=== PATIENT | female | born 1990 | race American Indian/Alaskan Native ===

== ENCOUNTER 2020-09-23 12:00 | Inpatient (IN) | payer BC ==
[2020-09-23] MEDS ORDERED: ONDANSETRON 4 MG/2 ML INJ IV ONE (13:51)
[2020-09-23] MEDS ORDERED: MORPHINE 4 MG/1 ML INJ IV ONE (13:51)
[2020-09-23] MEDS ORDERED: SODIUM CHLORIDE 0.9% 1000 ML 1,000 ML IV ONE (13:51)
--- NOTE | 2020-09-23 13:53 | Event Note ---
ED Screening Note ED Screening Note: upper abd pain that initially began two weeks ago and states it worsened this morning she states now the pain is worse she has associated n/v she denies diarrhea, hematochezia, melena, hematemesis, pus in the stool, fever, urinary symptoms, abnormal vaginal discharge She denies any past medical history Allergy to amoxicillin Last menstrual cycle ended last month On exam patient has diffuse abdominal tenderness palpation, worse in the upper abdomen, patient has voluntary guarding, normal bowel sounds Dry mucous membranes This initial assessment/diagnostic orders/clinical plan/treatment(s) is/are subject to change based on patients health status, clinical progression and re- assessment by fellow clinical providers in the ED. Further treatment and workup at subsequent clinical providers discretion. Patient/guardian urged not to elope from the ED as their condition may be serious if not clinically assessed and managed. Initial orders include: Labs, CT, urine, meds
[2020-09-23 14:45] LABS: Basophils # (Auto) 0.1 K/mm3 (0.0-0.1); Eosinophils % (Auto) 0.2 % (0.0-4.3); Hematocrit 34.8 % (30.3-42.9); Hemoglobin 11.7 gm/dl (10.1-14.3); Lymphocytes # (Auto) 1.6 K/mm3 (1.2-5.4); Lymphocytes % (Auto) 12.4 % (13.4-35.0); Mean Corpuscular HGB Conc 34 % (30-34); Mean Corpuscular Volume 88 fl (79-97); Monocytes # (Auto) 1.5 K/mm3 (0.0-0.8); Monocytes % (Auto) 11.5 % (0.0-7.3); Platelet Count 546 K/mm3 (140-440); Red Blood Count 3.96 M/mm3 (3.65-5.03); Red Cell Distribution Width 15.5 % (13.2-15.2)
[2020-09-23 14:50] LABS: Alanine Aminotransferase 15 units/L (7-56); Albumin 4.2 g/dL (3.9-5); BUN/Creatinine Ratio 12; Blood Urea Nitrogen 13 mg/dL (7-17); Hemolysis Index 3
--- NOTE | 2020-09-23 15:59 | Cat Scan Report ---
CT ABDOMEN AND PELVIS WITH CONTRAST INDICATION / CLINICAL INFORMATION: Abdominal pain. TECHNIQUE: Axial CT images were obtained through the abdomen and pelvis after IV contrast. All CT sc ans at this location are performed using CT dose reduction for ALARA by means of automated exposure c ontrol. COMPARISON: None available. FINDINGS: LOWER CHEST: No significant abnormality LIVER: No significant abnormality GALLBLADDER/BILIARY TREE: No significant abnormality. No gallbladder dilatation. PANCREAS: No significant abnormality SPLEEN: No significant abnormality ADRENALS: No significant abnormality KIDNEYS / URETER: No significant abnormality URINARY BLADDER: No significant abnormality REPRODUCTIVE ORGANS: No significant abnormality STOMACH / SMALL BOWEL: Extensive mural thickening and inflammatory stranding with mucosal disruption seen on series 601 image 32 with intramural fluid, consistent with ulceration. There is moderate scat tered intraperitoneal free air, consistent with perforation. No bowel obstruction. COLON: The colon is unremarkable. The appendix is normal in caliber. LYMPH NODES: Multiple enlarged reactive lymph nodes within the upper abdomen. VASCULATURE: No significant abnormality. OTHER: No free air, free fluid, or focal fluid collection is identified. SKELETAL SYSTEM: No acute osseous findings. IMPRESSION: 1. Peptic ulcer disease at the gastroduodenal junction with perforation. 2. Enlarged presumably reactive lymph nodes in the upper abdomen. Findings were discussed with ALEE Awan by phone on 09/23/2020 at 2:55 PM Signer Name: Suleman Hayward MD Signed: 09/23/2020 3:55 PM Workstation Name: [email or web address]
--- NOTE | 2020-09-23 16:50 | Emergency Department Report ---
ED General Adult HPI - General Chief complaint: Abdominal Pain Stated complaint: ABD PAIN PUI?: No Time Seen by Provider: 09/23/20 13:47 Source: patient, RN notes reviewed Mode of arrival: Ambulatory Limitations: No Limitations - History of Present Illness Initial comments: The patient was evaluated in the emergency department for symptoms described in the history of present illness. He/she was evaluated in the context of the global COVID-19 pandemic, which necessitated consideration that the patient might be at risk for infection with the virus that causes COVID-19. Institutional protocols and algorithms that pertain to the evaluation of patients at risk for COVID-19 are in a state of rapid change based on information released by regulatory bodies including the CDC and federal and state organizations. These policies and algorithms were followed during the patient's care in the emergency department. Please note that these policies, procedures and recommendations changed on a rapid basis. This is a pleasant 29-year-old female. She is not known to myself previously. She denies chronic medical issues from prior surgical history. She presents to the ER with a complaint of 1 week diffuse upper abdominal pain, nausea, anorexia. Denies fever, loss of taste and smell. Abdominal pain is sharp and throbbing, increases with palpation, decreases with rest. Denies Covid symptomatology. Patient occasionally takes Goody's, and NSAIDs. Occasionally smokes, and occasionally consumes tobacco and alcohol. Has no known history of peptic ulcer disease that she is aware of. -: Gradual, days(s) Location: abdomen Radiation: non-radiation Severity scale (0 -10): 10 Quality: aching Consistency: constant Improves with: rest Worsens with: movement - Related Data Allergies Allergy/AdvReac Type Severity Reaction Status Date / Time amoxicillin Allergy Hives Verified 09/23/20 12:48 ED Review of Systems ROS: Stated complaint: ABD PAIN Other details as noted in HPI Constitutional: malaise. denies: fever Eyes: denies: eye discharge ENT: denies: other Respiratory: denies: cough Cardiovascular: denies: chest pain Gastrointestinal: abdominal pain, nausea Genitourinary: as per HPI. denies: dysuria Musculoskeletal: denies: myalgia Neurological: weakness Hematological/Lymphatic: denies: easy bleeding ED Past Medical Hx - Past Medical History Previous Medical History?: No - Surgical History Past Surgical History?: No ED Physical Exam - General Limitations: No Limitations General appearance: alert, anxious - Head Head exam: Present: atraumatic, normocephalic - Eye Eye exam: Present: normal appearance, EOMI. Absent: nystagmus - ENT ENT exam: Present: normal exam, normal orophraynx, mucous membranes moist, normal external ear exam - Neck Neck exam: Present: normal inspection, full ROM. Absent: tenderness, meningis mus - Respiratory Respiratory exam: Present: normal lung sounds bilaterally. Absent: respiratory distress, wheezes, rales, rhonchi, stridor, decreased breath sounds - Cardiovascular Cardiovascular Exam: Present: normal rhythm, tachycardia, normal heart sounds. Absent: systolic murmur, diastolic murmur, rubs, gallop - GI/Abdominal GI/Abdominal exam: Present: soft, tenderness, guarding, rebound, pulsatile mass. Absent: distended - Extremities Exam Extremities exam: Present: normal inspection, full ROM, other (2+ pulses noted in the bilateral upper and lower extremities. There is no palpable cord. negative Homans sign. Muscular compartments are soft. The pelvis is stable.). Absent: pedal edema, calf tenderness - Back Exam Back exam: Present: normal inspection. Absent: tenderness, CVA tenderness (R), CVA tenderness (L), muscle spasm, paraspinal tenderness, vertebral tenderness - Neurological Exam Neurological exam: Present: alert, other (2+ pulses noted in the bilateral upper and lower extremities. There is no palpable cord. negative Homans sign. Muscular compartments are soft. The pelvis is stable.) - Psychiatric Psychiatric exam: Present: anxious - Skin Skin exam: Present: warm, dry, intact, normal color. Absent: rash ED Course Vital Signs 09/23/20 12:51 Temperature 98.4 F Pulse Rate 112 H Respiratory 20 Rate Blood Pressure 114/64 [Right] O2 Sat by Pulse 100 Oximetry - Reevaluation(s) Reevaluation #1: 09/23/20 17:06 Differential diagnosis, including but not limited to: Pancreatitis, peptic ulcer disease, perforated viscus Assessment and plan: 29-year-old female with abdominal pain tenderness, rebound and guarding, leukocytosis, without fever, not , CT scan abdomen pelvis suggest perforated viscus. I have contacted general surgeon on-call, Dr. Walker, have discussed the patient's history, physical, pertinent laboratory studies and imaging studies, and have requested emergent general surgical consultation. He is in route, and states he will call the OR team in. Hospital physician, Dr. Sangeeta Garcia to admit to IMS Patient will be given fluids, pain medication antibiotics and Protonix. Explained significance of findings to patient, including the articulated plan of care. Patient verbalized understanding, and is amenable to this plan of care. Medical decision makin-year-old female with peritonitis secondary to pe rforated viscus requires emergent general surgical evaluation, and operative intervention. ED Medical Decision Making - Lab Data Result diagrams: 09/23/20 14:21 09/23/20 14:21 Vital Signs 09/23/20 12:51 Temperature 98.4 F Pulse Rate 112 H Respiratory 20 Rate Blood Pressure 114/64 [Right] O2 Sat by Pulse 100 Oximetry Lab Results 09/23/20 09/23/20 09/23/20 Range/Units 14:21 14:21 14:21 WBC 12.8 H (4.5-11.0) K/mm3 RBC 3.96 (3.65-5.03) M/mm3 Hgb 11.7 (10.1-14.3) gm/dl Hct 34.8 (30.3-42.9) % MCV 88 (79-97) fl MCH 30 (28-32) pg MCHC 34 (30-34) % RDW 15.5 H (13.2-15.2) % Plt Count 546 H (140-440) K/mm3 Lymph % (Auto) 12.4 L (13.4-35.0) % Wilcox % (Auto) 11.5 H (0.0-7.3) % Eos % (Auto) 0.2 (0.0-4.3) % Baso % (Auto) 1.0 (0.0-1.8) % Lymph # (Auto) 1.6 (1.2-5.4) K/mm3 Wilcox # (Auto) 1.5 H (0.0-0.8) K/mm3 Eos # (Auto) 0.0 (0.0-0.4) K/mm3 Baso # (Auto) 0.1 (0.0-0.1) K/mm3 Seg Neutrophils % 74.9 H (40.0-70.0) % Seg Neutrophils # 9.6 H (1.8-7.7) K/mm3 Sodium 140 (137-145) mmol/L Potassium 3.2 L (3.6-5.0) mmol/L Chloride 102.6 (98-107) mmol/L Carbon Dioxide 22 (22-30) mmol/L Anion Gap 19 mmol/L BUN 13 (7-17) mg/dL Creatinine 1.1 (0.6-1.2) mg/dL Estimated GFR 59 ml/min BUN/Creatinine Ratio 12 % Glucose 132 H (65-100) mg/dL Calcium 9.0 (8.4-10.2) mg/dL Total Bilirubin < 0.20 (0.1-1.2) mg/dL AST 13 (5-40) units/L ALT 15 (7-56) units/L Alkaline Phosphatase 138 H (35-129) units/L Total Protein 7.4 (6.3-8.2) g/dL Albumin 4.2 (3.9-5) g/dL Albumin/Globulin Ratio 1.3 % Lipase 35 (13-60) units/L HCG, Qual Negative (Negative) - Radiology Data Radiology results: pending, report reviewed, [place] [id number] Cat Scan Report Signed Patient: JORGE DEL TORO MR#: [id number] 2 : 1990 Acct:[id number] Age/Sex: 29 / F ADM Date: 09/23/20 Loc: ED Attending Dr: Ordering Physician: BRINDA MONTERO Date of Service: 09/23/20 Procedure(s): CT abdomen pelvis w con Accession Number(s): [id number] cc: BRINDA MONTERO CT ABDOMEN AND PELVIS WITH CONTRAST INDICATION / CLINICAL INFORMATION: Abdominal pain. TECHNIQUE: Axial CT images were obtained through the abdomen and pelvis after IV contrast. All CT scans at this location are performed using CT dose reduction for ALARA by means of automated exposure control. COMPARISON: None available. FINDINGS: LOWER CHEST: No significant abnormality LIVER: No significant abnormality GALLBLADDER/BILIARY TREE: No significant abnormality. No gallbladder dilatation. PANCREAS: No significant abnormality SPLEEN: No significant abnormality ADRENALS: No significant abnormality KIDNEYS / URETER: No significant abnormality URINARY BLADDER: No significant abnormality REPRODUCTIVE ORGANS: No significant abnormality STOMACH / SMALL BOWEL: Extensive mural thickening and inflammatory stranding with mucosal disruption seen on series 601 image 32 with intramural fluid, consistent with ulceration. There is moderate scattered intraperitoneal free air, consistent with perforation. No bowel obstruction. COLON: The colon is unremarkable. The appendix is normal in caliber. LYMPH NODES: Multiple enlarged reactive lymph nodes within the upper abdomen. VASCULATURE: No significant abnormality. OTHER: No free air, free fluid, or focal fluid collection is identified. SKELETAL SYSTEM: No acute osseous findings. IMPRESSION: 1. Peptic ulcer disease at the gastroduodenal junction with perforation. 2. Enlarged presumably reactive lymph nodes in the upper abdomen. Findings were discussed with ALEE Awan by phone on 09/23/2020 at 2:55 PM Signer Name: Tamika Hayward MD Signed: 09/23/2020 3:55 PM Workstation Name: [id number] Transcribed By: SUNITA Dictated By: TAMIKA HAYWARD MD Electronically Authenticated By: TAMIKA HAYWARD MD Signed Date/Time: 09/23/20 1555 DD/ 1542 Critical care attestation.: If time is entered above; I have spent that time in minutes in the direct care of this critically ill patient, excluding procedure time. ED Disposition Clinical Impression: Perforated abdominal viscus, Peritonitis, Hypokalemia Disposition: OP ADMIT IP TO THIS HOSP Is pt being admited?: Yes Does the pt Need Aspirin: No Condition: Serious Instructions: Abdominal Pain (ED) Referrals: PRIMARY CAREMD [Primary Care Provider] - 3-5 Days
[2020-09-23] MEDS ORDERED: metroNIDAZOLE/NS 500 MG/100 ML 500 MG/100 ML BAG IV ONE (16:51)
[2020-09-23] MEDS ORDERED: PANTOPRAZOLE 40 MG INJ IV ONE (16:52)
[2020-09-23] MEDS ORDERED: LACTATED RINGERS 2,000 ML IV ONE (16:52)
[2020-09-23] MEDS: POTASSIUM CHLORIDE 10 MEQ 10 MEQ/100 ML BAG IV SCH ×2 (17:18→18:46)
[2020-09-23] MEDS ORDERED: HYDROmorphone 1 MG/1 ML INJ IV ONE (17:36)
[2020-09-23] MEDS ORDERED: ONDANSETRON 4 MG/2 ML INJ IV PRN ×2 (18:28→18:56)
[2020-09-23] MEDS ORDERED: ACETAMINOPHEN 325 MG TAB PO PRN (18:28)
[2020-09-23] MEDS ORDERED: METOCLOPRAMIDE 10 MG/2 ML INJ IV PRN (18:28)
--- NOTE | 2020-09-23 18:28 | History and Physical Report ---
History of Present Illness Date of examination: 09/23/20 Date of admission: 09/23/20 17:00 Chief complaint: Abdominal pain for 2 weeks History of present illness: 29-year-old -[place]og[place] female with no significant past medical history comes in for abdominal pain of 2 weeks duration. Patient has been taking BC powders for muscle pains and while going to the gym. Patient takes BC powders twice a day for pain relief. Buys it from [employer]. Today the pain has been worse and about 10 on a scale of 1-10 associated with vomiting x3. Pain is sharp and intermittent. Patient is very uncomfortable because of the pain. Pain is exacerbated by eating and relieved by fasting. No fever or chills. No exposure to coronavirus. - Past Medical History Previous Medical History?: No - Surgical History Past Surgical History?: No -Social history no alcohol or smoking Family history HTN Review of Systems ROS: Constitutional no weight loss or weight gain no fever or chills HEENT no sore throat no post nasal drip no diplopia Neck no neck stiffness no lymph gland enlargement Chest and lungs no shortness of breath cough or wheezing CVS no chest pain no diaphoresis no palpitations GI severe abdominal pain and vomiting x3 pain is 10/10 Genitourinary system no dysuria no flank pain Musculoskeletal system no muscle pains no joint pains [employer] no syncope no seizures Skin no rash no itching Psychiatric no depression no homicidal or suicidal tendencies Hematologic no lymphedema or bruising Endocrine no polydipsia no polyuria no cold intolerance no heat intolerance Medications and Allergies Allergies Allergy/AdvReac Type Severity Reaction Status Date / Time amoxicillin Allergy Hives Verified 09/23/20 12:48 Penicillins AdvReac Hives Verified 09/23/20 17:44 Home Medications Medication Instructions Recorded Confirmed Last Taken Type No Known Home Medications [No 09/23/20 09/23/20 Unknown History Reported Home Medications] Active Meds: Active Medications Hydromorphone HCl (Hydromorphone 1 Mg/1 Ml Inj) 1 mg IV Q2H PRN PRN Reason: Pain , Severe (7-10) Potassium Chloride (Kcl 10meq/100ml) 10 meq in 100 mls @ 100 mls/hr IV Q1H JULIA Stop: 09/23/20 20:59 Last Admin: 09/23/20 17:18 Dose: 100 mls/hr Documented by: Levofloxacin/Dextrose (Levaquin 750mg/150ml) 750 mg in 150 mls @ 100 mls/hr IV NOW JULIA; Protocol Last Admin: 09/23/20 17:47 Dose: 100 mls/hr Documented by: Lactated Ringer's (Lactated Ringers) 2,000 mls @ 999 mls/hr IV BOLUS ONE Stop: 09/23/20 18:52 Last Admin: 09/23/20 17:19 Dose: 999 mls/hr Documented by: Exam - Constitutional Vitals: Temp Pulse Resp BP Pulse Ox 98.4 F 112 H 17 148/67 100 09/23/20 12:51 09/23/20 18:00 09/23/20 18:00 09/23/20 18:00 09/23/20 18:00 General appearance: Present: severe distress, well-nourished - EENT Eyes: Present: PERRL ENT: hearing intact, clear oral mucosa - Neck Neck: Present: supple, normal ROM - Respiratory Respiratory effort: normal Respiratory: bilateral: CTA - Cardiovascular Heart rate: 98 Rhythm: regular Heart Sounds: Present: S1 & S2. Absent: rub, click - Extremities Extremities: pulses symmetrical, No edema Peripheral Pulses: within normal limits - Abdominal General gastrointestinal: Present: soft, tender, non-distended, normal bowel sounds Localized gastrointestinal: tender: epigastric periumbilical, guarding: epigastric periumbilical, rebound: epigastric periumbilical Female genitourinary: Present: normal - Rectal Rectal Exam: deferred - Integumentary Integumentary: Present: clear, warm, dry - Musculoskeletal Musculoskeletal: gait normal, strength equal bilaterally - Psychiatric Psychiatric: appropriate mood/affect, intact judgment & insight - Neurologic Neurologic: CNII-XII intact, moves all extremities - Allied Health Allied health notes reviewed: nursing, case management HEART Score - HEART Score History: Slightly suspicious Age: < 45 Risk factors: No known risk factors - Critical Actions Critical Actions: 0-3 pts:0.9-1.7%risk of adverse cardiac event.Candidate for discharge Results - Labs CBC & Chem 7: 09/23/20 14:21 09/23/20 14:21 Labs: Laboratory Last Values WBC 12.8 K/mm3 (4.5-11.0) H 09/23/20 14:21 RBC 3.96 M/mm3 (3.65-5.03) 09/23/20 14:21 Hgb 11.7 gm/dl (10.1-14.3) 09/23/20 14:21 Hct 34.8 % (30.3-42.9) 09/23/20 14:21 MCV 88 fl (79-97) 09/23/20 14:21 MCH 30 pg (28-32) 09/23/20 14:21 MCHC 34 % (30-34) 09/23/20 14:21 RDW 15.5 % (13.2-15.2) H 09/23/20 14:21 Plt Count 546 K/mm3 (140-440) H 09/23/20 14:21 Lymph % (Auto) 12.4 % (13.4-35.0) L 09/23/20 14:21 Kimble % (Auto) 11.5 % (0.0-7.3) H 09/23/20 14:21 Eos % (Auto) 0.2 % (0.0-4.3) 09/23/20 14:21 Baso % (Auto) 1.0 % (0.0-1.8) 09/23/20 14:21 Lymph # (Auto) 1.6 K/mm3 (1.2-5.4) 09/23/20 14:21 Kimble # (Auto) 1.5 K/mm3 (0.0-0.8) H 09/23/20 14:21 Eos # (Auto) 0.0 K/mm3 (0.0-0.4) 09/23/20 14:21 Baso # (Auto) 0.1 K/mm3 (0.0-0.1) 09/23/20 14:21 Seg Neutrophils % 74.9 % (40.0-70.0) H 09/23/20 14:21 Seg Neutrophils # 9.6 K/mm3 (1.8-7.7) H 09/23/20 14:21 Sodium 140 mmol/L (137-145) 09/23/20 14:21 Potassium 3.2 mmol/L (3.6-5.0) L 09/23/20 14:21 Chloride 102.6 mmol/L (98-107) 09/23/20 14:21 Carbon Dioxide 22 mmol/L (22-30) 09/23/20 14:21 Anion Gap 19 mmol/L 09/23/20 14:21 BUN 13 mg/dL (7-17) 09/23/20 14:21 Creatinine 1.1 mg/dL (0.6-1.2) 09/23/20 14:21 Estimated GFR 59 ml/min 09/23/20 14:21 BUN/Creatinine Ratio 12 % 09/23/20 14:21 Glucose 132 mg/dL (65-100) H 09/23/20 14:21 Calcium 9.0 mg/dL (8.4-10.2) 09/23/20 14:21 Magnesium 2.80 mg/dL (1.7-2.3) H 09/23/20 16:55 Total Bilirubin < 0.20 mg/dL (0.1-1.2) 09/23/20 14:21 AST 13 units/L (5-40) 09/23/20 14:21 ALT 15 units/L (7-56) 09/23/20 14:21 Alkaline Phosphatase 138 units/L (35-129) H 09/23/20 14:21 Total Creatine Kinase 115 units/L (30-135) 09/23/20 16:55 Total Protein 7.4 g/dL (6.3-8.2) 09/23/20 14:21 Albumin 4.2 g/dL (3.9-5) 09/23/20 14:21 Albumin/Globulin Ratio 1.3 % 09/23/20 14:21 Lipase 35 units/L (13-60) 09/23/20 14:21 HCG, Qual Negative (Negative) 09/23/20 14:21 Blood Type O POSITIVE 09/23/20 16:55 Short CBC 09/23/20 Range/Units 14:21 WBC 12.8 H (4.5-11.0) K/mm3 Hgb 11.7 (10.1-14.3) gm/dl Hct 34.8 (30.3-42.9) % Plt Count 546 H (140-440) K/mm3 BMP 09/23/20 14:21 Sodium 140 Potassium 3.2 L Chloride 102.6 Carbon Dioxide 22 BUN 13 Creatinine 1.1 Glucose 132 H Calcium 9.0 Cardiac Enzymes 09/23/20 Range/Units 16:55 Total Creatine Kinase 115 (30-135) units/L Liver Function 09/23/ Range/Units 14:21 Total Bilirubin < 0.20 (0.1-1.2) mg/dL AST 13 (5-40) units/L ALT 15 (7-56) units/L Alkaline Phosphatase 138 H (35-129) units/L Albumin 4.2 (3.9-5) g/dL - Imaging and Cardiology CT scan - abdomen: report reviewed Imaging and Cardiology: Abdominal CAT scan Moderate scattered intraperitoneal free air consistent with perforation. No bowel obstruction. Final impression Peptic ulcer disease at the gastroduodenal junction with perforation Enlarged presumably reactive lymph nodes in the upper abdomen Assessment and Plan Advance Directives: Yes (Full code) VTE prophylaxis?: Chemical Plan of care discussed with patient/family: Yes - Patient Problems (1) Hypokalemia Current Visit: Yes Status: Acute Plan to address problem: IV potassium for now (2) Perforated abdominal viscus Current Visit: Yes Status: Acute Plan to address problem: Patient has a perforated duodenal ulcer secondary to BC powders IV Protonix 40 given and started on IV Protonix drip Patient being taken for emergent surgery (3) Peritonitis Current Visit: Yes Status: Acute Plan to address problem: Secondary to perforated duodenal ulcer (4) DVT prophylaxis Current Visit: Yes Status: Acute Plan to address problem: SCDs and GI prophylaxis Heparin from day 2
--- NOTE | 2020-09-23 18:54 | Anesthesia Day of Surgery ---
Anesthesia Day of Surgery - Day of Surgery Patient Examined: Yes Patient H&P Reviewed: Yes Patient is NPO: Yes
[2020-09-23] MEDS ORDERED: ROCURONIUM 50 MG/5 ML INJ IV ONE ×2 (18:56→21:00)
[2020-09-23] MEDS ORDERED: ONDANSETRON 4 MG/2 ML INJ ONE ×2 (18:56→20:33)
[2020-09-23] MEDS ORDERED: LIDOCAINE MPF (2%) 20 MG/1 ML VIAL 5 ML ONE (18:56)
[2020-09-23] MEDS ORDERED: dexAMETHasone 20 MG/5 ML VIAL ONE ×2 (18:56→20:33)
[2020-09-23] MEDS ORDERED: HYDROmorphone 1 MG/1 ML INJ IV PRN (18:56)
--- NOTE | 2020-09-23 18:56 | Anesthesia Consultation ---
Anesthesia Consult and Med Hx Date of service: 09/23/20 - Airway Anesthetic Teeth Evaluation: Good (Braces) ROM Head & Neck: Adequate Mental/Hyoid Distance: Adequate Mallampati Class: Class I Intubation Access Assessment: Good - Pre-Operative Health Status ASA Pre-Surgery Classification: ASA2, Emergency Proposed Anesthetic Plan: General - Pulmonary Hx Smoking: Yes - Gastrointestinal Hx Ulcer: Yes (Takes Goody Powder and perf'd ulcer) Hx Gastroesophageal Reflux Disease: No - Hematic Hx Sickle Cell Disease: No
[2020-09-23] MEDS ORDERED: propofoL 200 MG/20 ML VIAL IV ONE (18:57)
[2020-09-23] MEDS ORDERED: PANTOPRAZOLE 80 MG in SODIUM CHLORIDE 0.9% 100 ML IV SCH (19:00)
[2020-09-23 19:22] LABS: Bilirubin,Urine NEG (Negative); Blood,Urine SM (Negative); Color,Urine Yellow (Yellow); Mucus,Urine FEW /HPF; Protein,Urine <15 mg/dL mg/dL (Negative); Urobilinogen,Urine < 2.0 mg/dL (<2.0)
[2020-09-23] MEDS ORDERED: LIDOCAINE (1%) 10 MG/1 ML VIAL 20 ML MDV ONE (19:33)
[2020-09-23] MEDS ORDERED: BUPIVACAINE/PF (0.25%) 2.5 MG/ML 30 ML VIAL INFILTRATI ONE (19:34)
--- NOTE | 2020-09-23 19:49 | Consultation ---
History of Present Illness Consult date: 09/23/20 Reason for consult: abdominal pain - History of present illness History of present illness: 29 yo o/w healthy female with 2 weeks of upper abdominal pain. She has been taking BC powders bid for this pain and headaches. She began vomiting and because of the vomiting and increased epigastric pain, pt presented to the ED for further evaluation. She denies fever, chills, melena or hematemesis. She has no prior h/o PUD. Medications and Allergies Allergies Allergy/AdvReac Type Severity Reaction Status Date / Time amoxicillin Allergy Hives Verified 09/23/20 12:48 Penicillins AdvReac Hives Verified 09/23/20 17:44 Home Medications Medication Instructions Recorded Confirmed Last Taken Type No Known Home Medications [No 09/23/20 09/23/20 Unknown History Reported Home Medications] Active Meds: Active Medications Acetaminophen (Acetaminophen 325 Mg Tab) 650 mg PO Q4H PRN PRN Reason: Pain MILD(1-3)/Fever >100.5/SCHWARTZ Hydromorphone HCl (Hydromorphone 1 Mg/1 Ml Inj) 1 mg IV Q2H PRN PRN Reason: Pain , Severe (7-10) Hydromorphone HCl (Hydromorphone 1 Mg/1 Ml Inj) 0.25 mg IV Q10MIN PRN PRN Reason: Pain, Moderate (4-6) Stop: 09/23/20 23:59 Hydromorphone HCl (Hydromorphone 1 Mg/1 Ml Inj) 0.5 mg IV Q10MIN PRN PRN Reason: Pain , Severe (7-10) Stop: 09/23/20 23:59 Potassium Chloride (Kcl 10meq/100ml) 10 meq in 100 mls @ 100 mls/hr IV Q1H JULIA Stop: 09/23/20 20:59 Last Admin: 09/23/20 18:46 Dose: 100 mls/hr Documented by: Levofloxacin/Dextrose (Levaquin 750mg/150ml) 750 mg in 150 mls @ 100 mls/hr IV NOW JULIA; Protocol Last Admin: 09/23/20 17:47 Dose: 100 mls/hr Documented by: Sodium Chloride (Nacl 0.9% 1000 Ml) 1,000 mls @ 125 mls/hr IV DIRECT JULIA Pantoprazole Sodium 80 mg/ (Sodium Chloride) 100 mls @ 10 mls/hr IV DIRECT JULIA Metoclopramide HCl (Metoclopramide 10 Mg/2 Ml Inj) 10 mg IV Q6H PRN PRN Reason: Nausea And Vomiting Ondansetron HCl (Ondansetron 4 Mg/2 Ml Inj) 4 mg IV Q2H PRN PRN Reason: Nausea And Vomiting Ondansetron HCl (Ondansetron 4 Mg/2 Ml Inj) 4 mg IV ONCE PRN PRN Reason: Nausea And Vomiting Stop: 09/23/20 23:59 Sodium Chloride (Sodium Chloride 0.9% 10 Ml Flush Syringe) 10 ml IV BID JULIA Sodium Chloride (Sodium Chloride 0.9% 10 Ml Flush Syringe) 10 ml IV PRN PRN PRN Reason: LINE FLUSH Review of Systems All systems: negative (none) Exam Vital Signs Temp Pulse Resp BP Pulse Ox 98.4 F 112 H 20 114/64 100 09/23/20 12:51 09/23/20 12:51 09/23/20 12:51 09/23/20 12:51 09/23/20 12:51 - General physical appearance Positive: well developed, well nourished, no distress - Eyes Positive: PERRL, normal occular movement - ENT Positive: normal pinna, normal nares, normal mucosa, no hearing loss, no congestion - Neck Positive: no masses, no bruits, trachea midline, no venous distension - Respiratory Positive: normal expansion, normal respiratory effort, clear to auscultation - Cardiovascular Rhythm: regular Heart Sounds: Present: S1 & S2. Absent: rub, click - Extremities Extremities: no ischemia, pulses symmetrical, No edema - Breasts Breasts: normal, no mass, no skin changes - Abdomen Abdomen: Present: bowel sounds hypoactive, other (Moderately tender in the epigastrium with early rebound and guarding.). Absent: distended Hernia: none - Genitourinary Male Genitourinary: normal Female Genitourinary: normal - Integumentary no rash, no growths, no abnormal pigmentation - Neurologic Neurologic: alert and oriented to time, place and person, motor strength and sensation are grossly intact - Musculoskeletal normal gait, normal posture - Psychiatric Psychiatric: appropriate mood/affect, intact judgment & insight Results - Labs 09/23/20 14:21 09/23/20 14:21 Abnormal lab results 09/23/20 09/23/20 09/23/20 Range/Units 14:21 14:21 16:55 WBC 12.8 H (4.5-11.0) K/mm3 RDW 15.5 H (13.2-15.2) % Plt Count 546 H (140-440) K/mm3 Lymph % (Auto) 12.4 L (13.4-35.0) % [place] % (Auto) 11.5 H (0.0-7.3) % [place] # (Auto) 1.5 H (0.0-0.8) K/mm3 Seg Neutrophils % 74.9 H (40.0-70.0) % Seg Neutrophils # 9.6 H (1.8-7.7) K/mm3 Potassium 3.2 L (3.6-5.0) mmol/L Glucose 132 H (65-100) mg/dL Magnesium 2.80 H (1.7-2.3) mg/dL Alkaline Phosphatase 138 H (35-129) units/L Ur Specific [place] (1.003-1.030) U Epithel Cells (Auto) (0-13.0) /HPF 09/23/20 Range/Units Unknown WBC (4.5-11.0) K/mm3 RDW (13.2-15.2) % Plt Count (140-440) K/mm3 Lymph % (Auto) (13.4-35.0) % [place] % (Auto) (0.0-7.3) % [place] # (Auto) (0.0-0.8) K/mm3 Seg Neutrophils % (40.0-70.0) % Seg Neutrophils # (1.8-7.7) K/mm3 Potassium (3.6-5.0) mmol/L Glucose (65-100) mg/dL Magnesium (1.7-2.3) mg/dL Alkaline Phosphatase (35-129) units/L Ur Specific [place] 1.050 H (1.003-1.030) U Epithel Cells (Auto) 16.0 H (0-13.0) /HPF Diabetes panel 09/23/20 Range/Units 14:21 Sodium 140 (137-145) mmol/L Potassium 3.2 L (3.6-5.0) mmol/L Chloride 102.6 (98-107) mmol/L Carbon Dioxide 22 (22-30) mmol/L BUN 13 (7-17) mg/dL Creatinine 1.1 (0.6-1.2) mg/dL Glucose 132 H (65-100) mg/dL Calcium 9.0 (8.4-10.2) mg/dL AST 13 (5-40) units/L ALT 15 (7-56) units/L Alkaline Phosphatase 138 H (35-129) units/L Total Protein 7.4 (6.3-8.2) g/dL Albumin 4.2 (3.9-5) g/dL Calcium panel 09/23/20 Range/Units 14:21 Calcium 9.0 (8.4-10.2) mg/dL Albumin 4.2 (3.9-5) g/dL Pituitary panel 09/23/20 Range/Units 14:21 Sodium 140 (137-145) mmol/L Potassium 3.2 L (3.6-5.0) mmol/L Chloride 102.6 (98-107) mmol/L Carbon Dioxide 22 (22-30) mmol/L BUN 13 (7-17) mg/dL Creatinine 1.1 (0.6-1.2) mg/dL Glucose 132 H (65-100) mg/dL Calcium 9.0 (8.4-10.2) mg/dL Adrenal panel 09/23/20 Range/Units 14:21 Sodium 140 (137-145) mmol/L Potassium 3.2 L (3.6-5.0) mmol/L Chloride 102.6 (98-107) mmol/L Carbon Dioxide 22 (22-30) mmol/L BUN 13 (7-17) mg/dL Creatinine 1.1 (0.6-1.2) mg/dL Glucose 132 H (65-100) mg/dL Calcium 9.0 (8.4-10.2) mg/dL Total Bilirubin < 0.20 (0.1-1.2) mg/dL AST 13 (5-40) units/L ALT 15 (7-56) units/L Alkaline Phosphatase 138 H (35-129) units/L Total Protein 7.4 (6.3-8.2) g/dL Albumin 4.2 (3.9-5) g/dL - Imaging CT scan - abdomen: report reviewed CT scan - pelvis: report reviewed Assessment and Plan - Patient Problems (1) Perforated abdominal viscus Current Visit: Yes Status: Acute Plan to address problem: 1) To OR for exploratory laparotomy and oversewing and omentoplasty of perforated DU 2) Prophylactic Levaquin and SCD 3) NG decompression 4) IV Protonix 5) Valdez to BSB to monitor UOP.
[2020-09-23] MEDS: HYDROmorphone 1 MG/1 ML INJ IV PRN ×2 (19:55→22:05)
[2020-09-23] MEDS ORDERED: SODIUM CHLORIDE 0.9% IRR 1,500 ML BOTTLE IR ONE ×2 (20:00→20:41)
[2020-09-23] MEDS ORDERED: LACTATED RINGERS 1,000 ML ONE ×2 (21:00→21:01)
[2020-09-23] MEDS ORDERED: SUGAMMADEX SODIUM 200 MG/2 ML VIAL IV ONE (21:01)
[2020-09-23] MEDS ORDERED: SUCCINYLCHOLINE CHLORIDE 200 MG/10 ML INJ MDV ONE (21:03)
--- NOTE | 2020-09-23 21:30 | Procedure Note ---
Date of procedure: 09/23/20 Pre-op diagnosis: Perforated DU Post-op diagnosis: same Procedure: Oversew of perforated DU & omentoplasty Description of procedure: Pt was placed supine on the OR table. GETA was administered. Abdomen was prepped and draped. A vertical midline incision was made from the xiphoid process to the umbilicus. Peritoneal cavity was carefully entered. Upon entering the peritoneal cavity, a moderate amount of cloudy serous fluid was encountered. This was sent for C&S. Otilio retractor was inserted. Inferior edge of the liver was directed cephalad. I immediately identified a 4 mm perforation of the anterior duodenal bulb. This was closed with 2 interrupted sutures of 2-0 silk. An omentoplasty was then performed by securing a piece of transverse colon omentum over the perforation using the previously placed sutures of 2-0 silk. Peritoneal cavity was irrigated with 2 liters of warm saline. Fascia was closed with a running, looped, #1 PDS. SQ tissue was packed open with a dilute Betadine moistened Kerlix roll followed by dry 4 X 4's and Medipore tape. Pt tolerated the procedure well. Pt was extubated in the OR and was taken to PACU in stable condition. Anesthesia: GETA Surgeon: SAUL LEW Estimated blood loss: minimal Pathology: list (C&S of free intraperitoneal fluid) Specimen disposition: to lab Condition: stable Disposition: PACU
--- NOTE | 2020-09-23 22:10 | Post Anesthesia Evaluation ---
- Post Anesthesia Evaluation Patient Participated: Yes Airway Patent: Yes Stable Respiratory Function: Yes Nausea/Vomiting: No Temp > 96.8F: Yes Pain Manageable: Yes Adequeate Hydration: Yes Anesthesia Complications: No Block Receding Appropriately: Not Applicable Patient on Ventilator: No
[2020-09-24] MEDS: HYDROmorphone 1 MG/1 ML INJ IV PRN ×5 (00:38→21:26)
[2020-09-24] MEDS: SODIUM CHLORIDE 0.9% 1000 ML 1,000 ML IV SCH ×2 (00:59→23:14)
[2020-09-24] MEDS: PANTOPRAZOLE 40 MG INJ IV SCH ×2 (04:47→17:38)
[2020-09-24] MEDS ORDERED: LIP THERAPY VASELINE TP PRN (06:46)
[2020-09-24 08:24] LABS: Basophils % (Auto) 0.1 % (0.0-1.8); Hematocrit 30.1 % (30.3-42.9); Hemoglobin 9.8 gm/dl (10.1-14.3); Lymphocytes # (Auto) 0.9 K/mm3 (1.2-5.4); Lymphocytes % (Auto) 4.8 % (13.4-35.0); Mean Corpuscular HGB Conc 33 % (30-34); Mean Corpuscular Volume 89 fl (79-97); Monocytes % (Auto) 5.6 % (0.0-7.3); Platelet Count 428 K/mm3 (140-440); Red Blood Count 3.39 M/mm3 (3.65-5.03); Red Cell Distribution Width 15.7 % (13.2-15.2)
[2020-09-24 08:47] LABS: Blood Urea Nitrogen 9 mg/dL (7-17); Calcium 8.6 mg/dL (8.4-10.2)
[2020-09-24 08:48] LABS: Alanine Aminotransferase 20 units/L (7-56); Hemolysis Index 6
[2020-09-24 08:55] LABS: BUN/Creatinine Ratio 13
[2020-09-24 09:16] LABS: Albumin 3.7 g/dL (3.9-5)
--- NOTE | 2020-09-24 12:41 | Progress Note ---
Assessment and Plan Assessment and plan: This is a 29-year-old female admitted with a perforated duodenal ulcer Perforated duodenal ulcer -09/23 CT abdomen/pelvis with contrast shows peptic ulcer disease at the gastroduodenal junction with perforation, and large persistently reactive lymph nodes in the upper abdomen -S/p oversew of perforated duodenal ulcer and omentoplasty -Free intraperitoneal fluid sent for culture and sensitivity -NGT to LIWS -N.p.o. -IV Protonix Peritonitis -IV antibiotics -Secondary to perforated duodenal ulcer Leukocytosis -Secondary to perforated duodenal ulcer associated with peritonitis -IV antibiotics -Trend CBC DVT/GI prophylaxis: SCDs to bilateral lower extremities while in bed, Protonix, no chemical anticoagulation until cleared by surgery Disposition: Surgical floor History Interval history: This is a 29-year-old female with no significant past medical history who presents to the emergency department on 09/23 with complaints of abdominal pain for the past 2 weeks which worsened on the day of admission and is rated at a 10/10, describes a sharp intermittent pain which is exacerbated by eating and relieved with fasting and associated with vomiting x3. Patient has been taking Goody's powders for muscle pain twice a day. Recommend emergency department included abdominal CT scan which showed peptic ulcer disease at the gastroduodenal junction with perforation, enlarged presumably reactive lymph nodes in the upper abdomen with no bowel obstruction patient was admitted to the hospital service with consult to surgery for perforated peptic ulcer. 09/24: S/p oversew of perforated duodenal ulcer and omentoplasty with free Intraperitoneal fluid sent for culture yesterday with surgery. This morning patient was seen after ambulation with RN and complained of pain getting back into bed. She appears to be in good spirits. Hospitalist Physical - Constitutional Vitals: Temp Pulse Resp BP Pulse Ox 98.7 F 108 H 18 140/84 100 09/24/20 08:00 09/24/20 08:00 09/24/20 08:00 09/24/20 08:00 09/24/20 08:00 General appearance: Present: no acute distress, well-nourished - EENT Eyes: Present: PERRL, EOM intact ENT: hearing intact, clear oral mucosa, dentition normal - Neck Neck: Present: normal ROM - Respiratory Respiratory effort: normal Respiratory: bilateral: CTA - Cardiovascular Rhythm: regular Heart Sounds: Present: S1 & S2. Absent: systolic murmur, diastolic murmur - Extremities Extremities: no ischemia, pulses intact, pulses symmetrical, No edema, normal temperature, normal color, Full ROM Peripheral Pulses: within normal limits - Abdominal General gastrointestinal: soft, non-tender, non-distended, absent bowel sounds - Integumentary Integumentary: Present: clear, warm, dry - Psychiatric Psychiatric: appropriate mood/affect, cooperative - Neurologic Neurologic: CNII-XII intact, no focal deficits, moves all extremities - Allied Health Allied health notes reviewed: nursing HEART Score - HEART Score Age: < 45 Risk factors: No known risk factors - Critical Actions Critical Actions: 0-3 pts:0.9-1.7%risk of adverse cardiac event.Candidate for discharge Results - Labs CBC & Chem 7: 09/24/20 07:12 09/24/20 07:12 Labs: Laboratory Last Values WBC 17.8 K/mm3 (4.5-11.0) H 09/24/20 07:12 RBC 3.39 M/mm3 (3.65-5.03) L 09/24/20 07:12 Hgb 9.8 gm/dl (10.1-14.3) L 09/24/20 07:12 Hct 30.1 % (30.3-42.9) L 09/24/20 07:12 MCV 89 fl (79-97) 09/24/20 07:12 MCH 29 pg (28-32) 09/24/20 07:12 MCHC 33 % (30-34) 09/24/20 07:12 RDW 15.7 % (13.2-15.2) H 09/24/20 07:12 Plt Count 428 K/mm3 (140-440) 09/24/20 07:12 Lymph % (Auto) 4.8 % (13.4-35.0) L 09/24/20 07:12 [place] % (Auto) 5.6 % (0.0-7.3) 09/24/20 07:12 Eos % (Auto) 0.0 % (0.0-4.3) 09/24/20 07:12 Baso % (Auto) 0.1 % (0.0-1.8) 09/24/20 07:12 Lymph # (Auto) 0.9 K/mm3 (1.2-5.4) L 09/24/20 07:12 [place] # (Auto) 1.0 K/mm3 (0.0-0.8) H 09/24/20 07:12 Eos # (Auto) 0.0 K/mm3 (0.0-0.4) 09/24/20 07:12 Baso # (Auto) 0.0 K/mm3 (0.0-0.1) 09/24/20 07:12 Seg Neutrophils % 89.5 % (40.0-70.0) H 09/24/20 07:12 Seg Neutrophils # 16.0 K/mm3 (1.8-7.7) H 09/24/20 07:12 Sodium 139 mmol/L (137-145) 09/24/20 07:12 Potassium 4.5 mmol/L (3.6-5.0) D 09/24/20 07:12 Chloride 103.6 mmol/L (98-107) 09/24/20 07:12 Carbon Dioxide 23 mmol/L (22-30) 09/24/20 07:12 Anion Gap 17 mmol/L 09/24/20 07:12 BUN 9 mg/dL (7-17) 09/24/20 07:12 Creatinine 0.7 mg/dL (0.6-1.2) 09/24/20 07:12 Estimated GFR > 60 ml/min 09/24/20 07:12 BUN/Creatinine Ratio 13 % 09/24/20 07:12 Glucose 99 mg/dL (65-100) 09/24/20 07:12 Hemoglobin A1c 5.4 % (4-6) 09/24/20 07:12 Calcium 8.6 mg/dL (8.4-10.2) 09/24/20 07:12 Magnesium 2.80 mg/dL (1.7-2.3) H 09/23/20 16:55 Total Bilirubin 0.30 mg/dL (0.1-1.2) 09/24/20 07:12 AST 23 units/L (5-40) 09/24/20 07:12 ALT 20 units/L (7-56) 09/24/20 07:12 Alkaline Phosphatase 108 units/L (35-129) 09/24/20 07:12 Total Creatine Kinase 115 units/L (30-135) 09/23/20 16:55 Total Protein 5.7 g/dL (6.3-8.2) L D 09/24/20 07:12 Albumin 3.7 g/dL (3.9-5) L 09/24/20 07:12 Albumin/Globulin Ratio 1.9 % 09/24/20 07:12 Lipase 35 units/L (13-60) 09/23/20 14:21 HCG, Qual Negative (Negative) 09/23/20 14:21 Urine Color Yellow (Yellow) 09/23/20 Unknown Urine Turbidity Clear (Clear) 09/23/20 Unknown Urine pH 5.0 (5.0-7.0) 09/23/20 Unknown Ur Specific [place] 1.050 (1.003-1.030) H 09/23/20 Unknown Urine Protein <15 mg/dl mg/dL (Negative) 09/23/20 Unknown Urine Glucose (UA) Neg mg/dL (Negative) 09/23/20 Unknown Urine Ketones Neg mg/dL (Negative) 09/23/20 Unknown Urine Blood Sm (Negative) 09/23/20 Unknown Urine Nitrite Neg (Negative) 09/23/20 Unknown Urine Bilirubin Neg (Negative) 09/23/20 Unknown Urine Urobilinogen < 2.0 mg/dL (<2.0) 09/23/20 Unknown Ur Leukocyte Esterase Neg (Negative) 09/23/20 Unknown Urine WBC (Auto) 2.0 /HPF (0.0-6.0) 09/23/20 Unknown Urine RBC (Auto) 7.0 /HPF (0.0-6.0) 09/23/20 Unknown U Epithel Cells (Auto) 16.0 /HPF (0-13.0) H 09/23/20 Unknown Urine Mucus Few /HPF 09/23/20 Unknown Blood Type O POSITIVE 09/23/20 16:55 Antibody Screen Negative 09/23/20 16:55 Valdez/IV: Voiding Method Indwelling Catheter Active Medications - Current Medications Current Medications: Generic Name Dose Route Start Last Admin Trade Name Freq PRN Reason Stop Dose Admin Acetaminophen 650 mg 09/23/20 18:28 Acetaminophen 325 Mg Tab PO Q4H PRN Pain MILD(1-3)/Fever >100.5/SCHWARTZ Hydromorphone HCl 1 mg 09/23/20 17:39 09/24/20 10:13 Hydromorphone 1 Mg/1 Ml Inj IV 1 mg Q2H PRN Administration Pain , Severe (7-10) Hydrophilic Ointment 1 applic 09/24/20 06:46 09/24/20 06:55 Lip Therapy Vaseline TP 1 applic DIRECT PRN Administration Dry Lips Sodium Chloride 1,000 mls @ 125 mls/hr 09/23/20 18:30 09/24/20 00:59 Nacl 0.9% 1000 Ml IV 125 mls/hr DIRECT JULIA Administration Levofloxacin/Dextrose 500 mg in 100 mls @ 100 mls/hr 09/24/20 17:00 Levaquin 500mg/100ml IV Q24H JULIA Protocol Metoclopramide HCl 10 mg 09/23/20 18:28 09/24/20 00:38 Metoclopramide 10 Mg/2 Ml Inj IV 10 mg Q6H PRN Administration Nausea And Vomiting Ondansetron HCl 4 mg 09/23/20 18:28 Ondansetron 4 Mg/2 Ml Inj IV Q2H PRN Nausea And Vomiting Pantoprazole Sodium 40 mg 09/24/20 05:00 09/24/20 04:47 Pantoprazole 40 Mg Inj IV 40 mg BID@0500,1700 JULIA Administration Sodium Chloride 10 ml 09/23/20 22:00 09/24/20 10:16 Sodium Chloride 0.9% 10 Ml Flush Syringe IV 10 ml BID JULIA Administration Sodium Chloride 10 ml 09/23/20 18:28 Sodium Chloride 0.9% 10 Ml Flush Syringe IV PRN PRN LINE FLUSH
--- NOTE | 2020-09-24 17:24 | Progress Note ---
Assessment and Plan - Patient Problems (1) Perforated abdominal viscus Current Visit: Yes Status: Acute Plan to address problem: 1) Continue NG and esqueda 2) Ambulate in halls 3) Continue Levaquin and Protonix 4) Begin dressing changes and dc esqueda tomorrow? Subjective Date of service: 09/24/20 Patient Reports: Positive: no new complaints, feels better, pain is less, no flatus, no bowel movement Objective Vital Signs - 12hr 09/24/20 09/24/20 08:00 15:00 Temperature 98.7 F 98.6 F Pulse Rate 108 H 97 H Respiratory 18 18 Rate Blood Pressure 140/84 121/80 [Right] O2 Sat by Pulse 100 97 Oximetry - Abdomen soft, bowel sounds hypoactive (Appropriately TTP) - Labs 09/24/20 07:12 09/24/20 07:12 Diabetes panel 09/24/20 09/24/20 Range/Units 07:12 07:12 Sodium 139 (137-145) mmol/L Potassium 4.5 D (3.6-5.0) mmol/L Chloride 103.6 (98-107) mmol/L Carbon Dioxide 23 (22-30) mmol/L BUN 9 (7-17) mg/dL Creatinine 0.7 (0.6-1.2) mg/dL Glucose 99 (65-100) mg/dL Hemoglobin A1c 5.4 (4-6) % Calcium 8.6 (8.4-10.2) mg/dL AST 23 (5-40) units/L ALT 20 (7-56) units/L Alkaline Phosphatase 108 (35-129) units/L Total Protein 5.7 L D (6.3-8.2) g/dL Albumin 3.7 L (3.9-5) g/dL Calcium panel 09/24/20 Range/Units 07:12 Calcium 8.6 (8.4-10.2) mg/dL Albumin 3.7 L (3.9-5) g/dL Pituitary panel 09/24/20 Range/Units 07:12 Sodium 139 (137-145) mmol/L Potassium 4.5 D (3.6-5.0) mmol/L Chloride 103.6 (98-107) mmol/L Carbon Dioxide 23 (22-30) mmol/L BUN 9 (7-17) mg/dL Creatinine 0.7 (0.6-1.2) mg/dL Glucose 99 (65-100) mg/dL Calcium 8.6 (8.4-10.2) mg/dL Adrenal panel 09/24/20 Range/Units 07:12 Sodium 139 (137-145) mmol/L Potassium 4.5 D (3.6-5.0) mmol/L Chloride 103.6 (98-107) mmol/L Carbon Dioxide 23 (22-30) mmol/L BUN 9 (7-17) mg/dL Creatinine 0.7 (0.6-1.2) mg/dL Glucose 99 (65-100) mg/dL Calcium 8.6 (8.4-10.2) mg/dL Total Bilirubin 0.30 (0.1-1.2) mg/dL AST 23 (5-40) units/L ALT 20 (7-56) units/L Alkaline Phosphatase 108 (35-129) units/L Total Protein 5.7 L D (6.3-8.2) g/dL Albumin 3.7 L (3.9-5) g/dL
[2020-09-24] MEDS: POTASSIUM CHLORIDE 10 MEQ 10 MEQ/100 ML BAG IV SCH (20:20)
[2020-09-24] MEDS ORDERED: diphenhydrAMINE 50 MG/ML VIAL IV ONE (23:20)
[2020-09-25] MEDS: HYDROmorphone 1 MG/1 ML INJ IV PRN ×5 (04:33→20:51)
[2020-09-25] MEDS: PANTOPRAZOLE 40 MG INJ IV SCH ×2 (04:33→17:16)
[2020-09-25] MEDS: SODIUM CHLORIDE 0.9% 1000 ML 1,000 ML IV SCH ×2 (08:47→20:51)
[2020-09-25 09:12] LABS: Hematocrit 27.3 % (30.3-42.9); Hemoglobin 9.3 gm/dl (10.1-14.3); Mean Corpuscular HGB Conc 34 % (30-34); Mean Corpuscular Volume 87 fl (79-97); Platelet Count 434 K/mm3 (140-440); Red Blood Count 3.12 M/mm3 (3.65-5.03)
--- NOTE | 2020-09-25 11:13 | Progress Note ---
Assessment and Plan Assessment and plan: This is a 29-year-old female admitted with a perforated duodenal ulcer Perforated duodenal ulcer -09/23 CT abdomen/pelvis with contrast shows peptic ulcer disease at the gastroduodenal junction with perforation, and large persistently reactive lymph nodes in the upper abdomen -S/p oversew of perforated duodenal ulcer and omentoplasty -Free intraperitoneal fluid sent for culture and sensitivity -NGT to LIWS -N.p.o. for now -IV Protonix Peritonitis -IV antibiotic -Secondary to perforated duodenal ulcer Leukocytosis (resolved) -Secondary to perforated duodenal ulcer associated with peritonitis -IV antibiotics -Trend CBC DVT/GI prophylaxis: SCDs to bilateral lower extremities while in bed, Protonix, no chemical anticoagulation until cleared by surgery Disposition: Surgical floor History Interval history: This is a 29-year-old female with no significant past medical history who presents to the emergency department on 09/23 with complaints of abdominal pain for the past 2 weeks which worsened on the day of admission and is rated at a 10/10, describes a sharp intermittent pain which is exacerbated by eating and relieved with fasting and associated with vomiting x3. Patient has been taking Goody's powders for muscle pain twice a day. Recommend emergency department included abdominal CT scan which showed peptic ulcer disease at the gastroduodenal junction with perforation, enlarged presumably reactive lymph nodes in the upper abdomen with no bowel obstruction patient was admitted to the hospital service with consult to surgery for perforated peptic ulcer. 09/24: S/p oversew of perforated duodenal ulcer and omentoplasty with free Intraperitoneal fluid sent for culture yesterday with surgery. This morning patient was seen after ambulation with RN and complained of pain getting back into bed. She appears to be in good spirits. 09/25: Patient complains of abd pain but is passing gas. Patient ambulated halls with no distress yesterday. Active bowel sounds, remains NPO per surgery. Will clear with surgery for discontinuing esqueda. Hospitalist Physical - Constitutional Vitals: Temp Pulse Resp BP Pulse Ox 98.0 F 100 H 18 129/91 96 09/25/20 07:00 09/25/20 07:00 09/25/20 07:00 09/25/20 07:00 09/25/20 07:00 General appearance: Present: no acute distress, well-nourished - EENT Eyes: Present: PERRL, EOM intact ENT: hearing intact, clear oral mucosa, dentition normal - Neck Neck: Present: normal ROM - Respiratory Respiratory effort: normal Respiratory: bilateral: CTA - Cardiovascular Rhythm: regular Heart Sounds: Present: S1 & S2. Absent: systolic murmur, diastolic murmur - Extremities Extremities: no ischemia, pulses intact, pulses symmetrical, No edema, normal temperature, normal color Peripheral Pulses: within normal limits - Abdominal General gastrointestinal: soft, non-tender, hypoactive bowel sounds - Integumentary Integumentary: Present: warm (MLA incision is clean and dry), dry - Psychiatric Psychiatric: appropriate mood/affect - Neurologic Neurologic: CNII-XII intact, no focal deficits, moves all extremities - Allied Health Allied health notes reviewed: nursing HEART Score - HEART Score Age: < 45 Risk factors: No known risk factors - Critical Actions Critical Actions: 0-3 pts:0.9-1.7%risk of adverse cardiac event.Candidate for discharge Results - Labs CBC & Chem 7: 09/25/20 08:14 09/24/20 07:12 Labs: Laboratory Last Values WBC 10.2 K/mm3 (4.5-11.0) 09/25/20 08:14 RBC 3.12 M/mm3 (3.65-5.03) L 09/25/20 08:14 Hgb 9.3 gm/dl (10.1-14.3) L 09/25/20 08:14 Hct 27.3 % (30.3-42.9) L 09/25/20 08:14 MCV 87 fl (79-97) 09/25/20 08:14 MCH 30 pg (28-32) 09/25/20 08:14 MCHC 34 % (30-34) 09/25/20 08:14 RDW 15.0 % (13.2-15.2) 09/25/20 08:14 Plt Count 434 K/mm3 (140-440) 09/25/20 08:14 Lymph % (Auto) 4.8 % (13.4-35.0) L 09/24/20 07:12 [place] % (Auto) 5.6 % (0.0-7.3) 09/24/20 07:12 Eos % (Auto) 0.0 % (0.0-4.3) 09/24/20 07:12 Baso % (Auto) 0.1 % (0.0-1.8) 09/24/20 07:12 Lymph # (Auto) 0.9 K/mm3 (1.2-5.4) L 09/24/20 07:12 [place] # (Auto) 1.0 K/mm3 (0.0-0.8) H 09/24/20 07:12 Eos # (Auto) 0.0 K/mm3 (0.0-0.4) 09/24/20 07:12 Baso # (Auto) 0.0 K/mm3 (0.0-0.1) 09/24/20 07:12 Seg Neutrophils % 89.5 % (40.0-70.0) H 09/24/20 07:12 Seg Neutrophils # 16.0 K/mm3 (1.8-7.7) H 09/24/20 07:12 Sodium 139 mmol/L (137-145) 09/24/20 07:12 Potassium 4.5 mmol/L (3.6-5.0) D 09/24/20 07:12 Chloride 103.6 mmol/L (98-107) 09/24/20 07:12 Carbon Dioxide 23 mmol/L (22-30) 09/24/20 07:12 Anion Gap 17 mmol/L 09/24/20 07:12 BUN 9 mg/dL (7-17) 09/24/20 07:12 Creatinine 0.7 mg/dL (0.6-1.2) 09/24/20 07:12 Estimated GFR > 60 ml/min 09/24/20 07:12 BUN/Creatinine Ratio 13 % 09/24/20 07:12 Glucose 99 mg/dL (65-100) 09/24/20 07:12 Hemoglobin A1c 5.4 % (4-6) 09/24/20 07:12 Calcium 8.6 mg/dL (8.4-10.2) 09/24/20 07:12 Magnesium 2.80 mg/dL (1.7-2.3) H 09/23/20 16:55 Total Bilirubin 0.30 mg/dL (0.1-1.2) 09/24/20 07:12 AST 23 units/L (5-40) 09/24/20 07:12 ALT 20 units/L (7-56) 09/24/20 07:12 Alkaline Phosphatase 108 units/L (35-129) 09/24/20 07:12 Total Creatine Kinase 115 units/L (30-135) 09/23/20 16:55 Total Protein 5.7 g/dL (6.3-8.2) L D 09/24/20 07:12 Albumin 3.7 g/dL (3.9-5) L 09/24/20 07:12 Albumin/Globulin Ratio 1.9 % 09/24/20 07:12 Lipase 35 units/L (13-60) 09/23/20 14:21 HCG, Qual Negative (Negative) 09/23/20 14:21 Urine Color Yellow (Yellow) 09/23/20 Unknown Urine Turbidity Clear (Clear) 09/23/20 Unknown Urine pH 5.0 (5.0-7.0) 09/23/20 Unknown Ur Specific [place] 1.050 (1.003-1.030) H 09/23/20 Unknown Urine Protein <15 mg/dl mg/dL (Negative) 09/23/20 Unknown Urine Glucose (UA) Neg mg/dL (Negative) 09/23/20 Unknown Urine Ketones Neg mg/dL (Negative) 09/23/20 Unknown Urine Blood Sm (Negative) 09/23/20 Unknown Urine Nitrite Neg (Negative) 09/23/20 Unknown Urine Bilirubin Neg (Negative) 09/23/20 Unknown Urine Urobilinogen < 2.0 mg/dL (<2.0) 09/23/20 Unknown Ur Leukocyte Esterase Neg (Negative) 09/23/20 Unknown Urine WBC (Auto) 2.0 /HPF (0.0-6.0) 09/23/20 Unknown Urine RBC (Auto) 7.0 /HPF (0.0-6.0) 09/23/20 Unknown U Epithel Cells (Auto) 16.0 /HPF (0-13.0) H 09/23/20 Unknown Urine Mucus Few /HPF 09/23/20 Unknown Blood Type O POSITIVE 09/23/20 16:55 Antibody Screen Negative 09/23/20 16:55 Esqueda/IV: Voiding Method Indwelling Catheter Active Medications - Current Medications Current Medications: Generic Name Dose Route Start Last Admin Trade Name Freq PRN Reason Stop Dose Admin Acetaminophen 650 mg 09/23/20 18:28 Acetaminophen 325 Mg Tab PO Q4H PRN Pain MILD(1-3)/Fever >100.5/SCHWARTZ Hydromorphone HCl 1 mg 09/23/20 17:39 09/25/20 08:46 Hydromorphone 1 Mg/1 Ml Inj IV 1 mg Q2H PRN Administration Pain , Severe (7-10) Hydrophilic Ointment 1 applic 09/24/20 06:46 09/24/20 06:55 Lip Therapy Vaseline TP 1 applic DIRECT PRN Administration Dry Lips Sodium Chloride 1,000 mls @ 125 mls/hr 09/23/20 18:30 09/25/20 08:47 Nacl 0.9% 1000 Ml IV 125 mls/hr DIRECT JULIA Administration Levofloxacin/Dextrose 500 mg in 100 mls @ 100 mls/hr 09/24/20 17:00 09/24/20 16:39 Levaquin 500mg/100ml IV 100 mls/hr Q24H JULIA Administration Protocol Metoclopramide HCl 10 mg 09/23/20 18:28 09/24/20 00:38 Metoclopramide 10 Mg/2 Ml Inj IV 10 mg Q6H PRN Administration Nausea And Vomiting Ondansetron HCl 4 mg 09/23/20 18:28 Ondansetron 4 Mg/2 Ml Inj IV Q2H PRN Nausea And Vomiting Pantoprazole Sodium 40 mg 09/24/20 05:00 09/25/20 04:33 Pantoprazole 40 Mg Inj IV 40 mg BID@0500,1700 JULIA Administration Sodium Chloride 10 ml 09/23/20 22:00 09/24/20 21:26 Sodium Chloride 0.9% 10 Ml Flush Syringe IV 10 ml BID JULIA Administration Sodium Chloride 10 ml 09/23/20 18:28 Sodium Chloride 0.9% 10 Ml Flush Syringe IV PRN PRN LINE FLUSH
[2020-09-25] MEDS ORDERED: SODIUM HYPOCHLORITE, DAKIN'S FULL STRENGTH (0.5%) 473 ML TOPICAL SOLN TP PRN (12:37)
--- NOTE | 2020-09-25 12:41 | Progress Note ---
Assessment and Plan - Patient Problems (1) Perforated abdominal viscus Current Visit: Yes Status: Acute Plan to address problem: 1) DC esqueda 2) CBC and BMP in the am 3) Begin bid abd dressing changes with Dakin's solution Subjective Date of service: 09/25/20 Patient Reports: Positive: feels better, pain is less, no flatus, no bowel movement Objective Vital Signs - 12hr 09/25/20 09/25/20 09/25/20 05:00 07:00 11:28 Temperature 98.7 F 98.0 F 98.3 F Pulse Rate 111 H 100 H 87 Respiratory 16 18 18 Rate Blood Pressure 129/91 135/97 Blood Pressure 125/80 [Right] O2 Sat by Pulse 96 96 97 Oximetry - Abdomen soft, bowel sounds hypoactive (Appropriately TTP. No rebound or guarding.) - Labs 09/25/20 08:14 09/24/20 07:12 - Imaging Additional Studies: No C&S results yet.
[2020-09-25] MEDS: SODIUM HYPOCHLORITE, DAKIN'S FULL STRENGTH (0.5%) 473 ML TOPICAL SOLN TP PRN (13:36)
[2020-09-26] MEDS: HYDROmorphone 1 MG/1 ML INJ IV PRN ×5 (00:13→21:03)
[2020-09-26 04:44] LABS: Basophils # (Auto) 0.1 K/mm3 (0.0-0.1); Basophils % (Auto) 0.8 % (0.0-1.8); Eosinophils # (Auto) 0.1 K/mm3 (0.0-0.4); Eosinophils % (Auto) 0.9 % (0.0-4.3); Hematocrit 27.5 % (30.3-42.9); Hemoglobin 9.2 gm/dl (10.1-14.3); Lymphocytes # (Auto) 1.6 K/mm3 (1.2-5.4); Lymphocytes % (Auto) 20.5 % (13.4-35.0); Mean Corpuscular HGB Conc 34 % (30-34); Mean Corpuscular Volume 87 fl (79-97); Monocytes # (Auto) 0.7 K/mm3 (0.0-0.8); Platelet Count 422 K/mm3 (140-440); Red Blood Count 3.17 M/mm3 (3.65-5.03); Red Cell Distribution Width 14.9 % (13.2-15.2)
[2020-09-26 05:08] LABS: Blood Urea Nitrogen 11 mg/dL (7-17); Calcium 8.4 mg/dL (8.4-10.2); Hemolysis Index 2
[2020-09-26 05:33] LABS: BUN/Creatinine Ratio 18
[2020-09-26] MEDS: PANTOPRAZOLE 40 MG INJ IV SCH ×2 (05:54→16:16)
[2020-09-26] MEDS: SODIUM CHLORIDE 0.9% 1000 ML 1,000 ML IV SCH (06:14)
[2020-09-26] MEDS: D5W/0.9% NACL 1,000 ML IV SCH ×2 (08:28→23:13)
--- NOTE | 2020-09-26 10:26 | Progress Note ---
<FARIDAMELISSAWilliam - Last Filed: 09/26/20 10:23> Assessment and Plan Assessment and plan: This is a 29-year-old female admitted with a perforated duodenal ulcer Perforated duodenal ulcer -09/23 CT abdomen/pelvis with contrast shows peptic ulcer disease at the gastroduodenal junction with perforation, and large persistently reactive lymph nodes in the upper abdomen -S/p oversew of perforated duodenal ulcer and omentoplasty -Free intraperitoneal fluid sent for culture and sensitivity -NGT to LIWS -N.p.o. for now -IV Protonix Peritonitis -IV antibiotic -Secondary to perforated duodenal ulcer Hypoglycemia -BG ranges 60-80s -Placed on D5NS @42ml/hr to prevent recurrent hypoglycemia Leukocytosis (resolved) -Secondary to perforated duodenal ulcer associated with peritonitis -IV antibiotics -Trend CBC DVT/GI prophylaxis: SCDs to bilateral lower extremities while in bed, Protonix, no chemical anticoagulation until cleared by surgery. Patient is ambulatory Disposition: Surgical floor History Interval history: This is a 29-year-old female with no significant past medical history who presents to the emergency department on 09/23 with complaints of abdominal pain for the past 2 weeks which worsened on the day of admission and is rated at a 10/10, describes a sharp intermittent pain which is exacerbated by eating and relieved with fasting and associated with vomiting x3. Patient has been taking Goody's powders for muscle pain twice a day. Recommend emergency department included abdominal CT scan which showed peptic ulcer disease at the gastroduodenal junction with perforation, enlarged presumably reactive lymph nodes in the upper abdomen with no bowel obstruction patient was admitted to the hospital service with consult to surgery for perforated peptic ulcer. 09/24: S/p oversew of perforated duodenal ulcer and omentoplasty with free Intraperitoneal fluid sent for culture yesterday with surgery. This morning patient was seen after ambulation with RN and complained of pain getting back into bed. She appears to be in good spirits. 09/25: Patient complains of abd pain but is passing gas. Patient ambulated halls with no distress yesterday. Active bowel sounds, remains NPO per surgery. Will clear with surgery for discontinuing esqueda. 09/26: Patient has active bowel sounds and is still burping however has not passed any flatus or had a bowel movement. Patient remains n.p.o. per surgery. Esqueda catheter was removed yesterday. Patient is still ambulating the hallways with encouragement from nursing staff. This morning her MIVF of normal saline w as changed to D5 normal saline to prevent recurrent hypoglycemia. Hospitalist Physical - Constitutional Vitals: Temp Pulse Resp BP Pulse Ox 98.3 F 83 18 123/81 96 09/26/20 07:22 09/26/20 07:22 09/26/20 07:22 09/26/20 07:22 09/26/20 07:22 General appearance: Present: no acute distress, well-nourished - EENT Eyes: Present: PERRL, EOM intact ENT: hearing intact, clear oral mucosa, dentition normal - Neck Neck: Present: supple, normal ROM - Respiratory Respiratory effort: normal Respiratory: bilateral: CTA - Cardiovascular Rhythm: regular Heart Sounds: Present: S1 & S2. Absent: systolic murmur, diastolic murmur - Extremities Extremities: no ischemia, pulses intact, pulses symmetrical, No edema, normal temperature, normal color Peripheral Pulses: within normal limits - Abdominal General gastrointestinal: soft, non-tender, non-distended, hypoactive bowel sounds - Integumentary Integumentary: Present: warm, dry - Psychiatric Psychiatric: appropriate mood/affect, cooperative - Neurologic Neurologic: CNII-XII intact, no focal deficits, moves all extremities - Allied Health Allied health notes reviewed: nursing HEART Score - HEART Score Age: < 45 Risk factors: No known risk factors - Critical Actions Critical Actions: 0-3 pts:0.9-1.7%risk of adverse cardiac event.Candidate for discharge Results - Labs CBC & Chem 7: 09/26/20 04:31 09/26/20 04:31 Labs: Laboratory Last Values WBC 7.7 K/mm3 (4.5-11.0) 09/26/20 04:31 RBC 3.17 M/mm3 (3.65-5.03) L 09/26/20 04:31 Hgb 9.2 gm/dl (10.1-14.3) L 09/26/20 04:31 Hct 27.5 % (30.3-42.9) L 09/26/20 04:31 MCV 87 fl (79-97) 09/26/20 04:31 MCH 29 pg (28-32) 09/26/20 04:31 MCHC 34 % (30-34) 09/26/20 04:31 RDW 14.9 % (13.2-15.2) 09/26/20 04:31 Plt Count 422 K/mm3 (140-440) 09/26/20 04:31 Lymph % (Auto) 20.5 % (13.4-35.0) 09/26/20 04:31 [place] % (Auto) 9.0 % (0.0-7.3) H 09/26/20 04:31 Eos % (Auto) 0.9 % (0.0-4.3) 09/26/20 04:31 Baso % (Auto) 0.8 % (0.0-1.8) 09/26/20 04:31 Lymph # (Auto) 1.6 K/mm3 (1.2-5.4) 09/26/20 04:31 [place] # (Auto) 0.7 K/mm3 (0.0-0.8) 09/26/20 04:31 Eos # (Auto) 0.1 K/mm3 (0.0-0.4) 09/26/20 04:31 Baso # (Auto) 0.1 K/mm3 (0.0-0.1) 09/26/20 04:31 Seg Neutrophils % 68.8 % (40.0-70.0) 09/26/20 04:31 Seg Neutrophils # 5.3 K/mm3 (1.8-7.7) 09/26/20 04:31 Sodium 137 mmol/L (137-145) 09/26/20 04:31 Potassium 3.6 mmol/L (3.6-5.0) 09/26/20 04:31 Chloride 100.3 mmol/L (98-107) 09/26/20 04:31 Carbon Dioxide 24 mmol/L (22-30) 09/26/20 04:31 Anion Gap 16 mmol/L 09/26/20 04:31 BUN 11 mg/dL (7-17) 09/26/20 04:31 Creatinine 0.6 mg/dL (0.6-1.2) 09/26/20 04:31 Estimated GFR > 60 ml/min 09/26/20 04:31 BUN/Creatinine Ratio 18 % 09/26/20 04:31 Glucose 69 mg/dL (65-100) 09/26/20 04:31 POC Glucose 80 mg/dL (70-105) 09/25/20 23:18 Hemoglobin A1c 5.4 % (4-6) 09/24/20 07:12 Calcium 8.4 mg/dL (8.4-10.2) 09/26/20 04:31 Magnesium 2.80 mg/dL (1.7-2.3) H 09/23/20 16:55 Total Bilirubin 0.30 mg/dL (0.1-1.2) 09/24/20 07:12 AST 23 units/L (5-40) 09/24/20 07:12 ALT 20 units/L (7-56) 09/24/20 07:12 Alkaline Phosphatase 108 units/L (35-129) 09/24/20 07:12 Total Creatine Kinase 115 units/L (30-135) 09/23/20 16:55 Total Protein 5.7 g/dL (6.3-8.2) L D 09/24/20 07:12 Albumin 3.7 g/dL (3.9-5) L 09/24/20 07:12 Albumin/Globulin Ratio 1.9 % 09/24/20 07:12 Lipase 35 units/L (13-60) 09/23/20 14:21 HCG, Qual Negative (Negative) 09/23/20 14:21 Urine Color Yellow (Yellow) 09/23/20 Unknown Urine Turbidity Clear (Clear) 09/23/20 Unknown Urine pH 5.0 (5.0-7.0) 09/23/20 Unknown Ur Specific [place] 1.050 (1.003-1.030) H 09/23/20 Unknown Urine Protein <15 mg/dl mg/dL (Negative) 09/23/20 Unknown Urine Glucose (UA) Neg mg/dL (Negative) 09/23/20 Unknown Urine Ketones Neg mg/dL (Negative) 09/23/20 Unknown Urine Blood Sm (Negative) 09/23/20 Unknown Urine Nitrite Neg (Negative) 09/23/20 Unknown Urine Bilirubin Neg (Negative) 09/23/20 Unknown Urine Urobilinogen < 2.0 mg/dL (<2.0) 09/23/20 Unknown Ur Leukocyte Esterase Neg (Negative) 09/23/20 Unknown Urine WBC (Auto) 2.0 /HPF (0.0-6.0) 09/23/20 Unknown Urine RBC (Auto) 7.0 /HPF (0.0-6.0) 09/23/20 Unknown U Epithel Cells (Auto) 16.0 /HPF (0-13.0) H 09/23/20 Unknown Urine Mucus Few /HPF 09/23/20 Unknown Blood Type O POSITIVE 09/23/20 16:55 Antibody Screen Negative 09/23/20 16:55 Microbiology: Microbiology 09/23/20 Unknown Abdomen Anaerobic Culture - Preliminary 09/23/20 Unknown Abdomen Surgical Culture - Preliminary Esqueda/IV: Voiding Method Toilet Active Medications - Current Medications Current Medications: Generic Name Dose Route Start Last Admin Trade Name Freq PRN Reason Stop Dose Admin Acetaminophen 650 mg 09/23/20 18:28 Acetaminophen 325 Mg Tab PO Q4H PRN Pain MILD(1-3)/Fever >100.5/SCHWARTZ Hydromorphone HCl 1 mg 09/23/20 17:39 09/26/20 05:55 Hydromorphone 1 Mg/1 Ml Inj IV 1 mg Q2H PRN Administration Pain , Severe (7-10) Hydrophilic Ointment 1 applic 09/24/20 06:46 09/24/20 06:55 Lip Therapy Vaseline TP 1 applic DIRECT PRN Administration Dry Lips Levofloxacin/Dextrose 500 mg in 100 mls @ 100 mls/hr 09/24/20 17:00 09/25/20 21:26 Levaquin 500mg/100ml IV Infused Q24H JULIA Infusion Protocol Dextrose/Sodium Chloride 1,000 mls @ 42 mls/hr 09/26/20 08:00 09/26/20 08:28 D5ns IV 42 mls/hr DIRECT JULIA Administration Metoclopramide HCl 10 mg 09/23/20 18:28 09/24/20 00:38 Metoclopramide 10 Mg/2 Ml Inj IV 10 mg Q6H PRN Administration Nausea And Vomiting Ondansetron HCl 4 mg 09/23/20 18:28 09/26/20 00:16 Ondansetron 4 Mg/2 Ml Inj IV 4 mg Q2H PRN Administration Nausea And Vomiting Pantoprazole Sodium 40 mg 09/24/20 05:00 09/26/20 05:54 Pantoprazole 40 Mg Inj IV 40 mg BID@0500,1700 JULIA Administration Sodium Chloride 10 ml 09/23/20 22:00 09/26/20 00:14 Sodium Chloride 0.9% 10 Ml Flush Syringe IV 10 ml BID JULIA Administration Sodium Chloride 10 ml 09/23/20 18:28 Sodium Chloride 0.9% 10 Ml Flush Syringe IV PRN PRN LINE FLUSH Sodium Hypochlorite 1 applic 09/25/20 13:00 09/25/20 13:36 Sodium Hypochlorite, Dakin's Full Strength (0.5%) 473 Ml Topical Soln TP 1 applicatio Q12H PRN Administration Wound Care <RAYA BOSWELL - Last Filed: 09/26/20 14:28> History Interval history: I have seen and examined the patient at the bedside this morning, patient did not have flatus or bowel movement Vague abdominal discomfort, no fever, Ambulated in the hallway,Continue n.p.o. status, IV fluids, IV antibiotics supportive care Surgery evaluation recommendations noted and appreciated I also reviewed and agree with the nurse practitioners evaluation treatment and documentation with few additions Hospitalist Physical - Constitutional Vitals: Temp Pulse Resp BP Pulse Ox 98.4 F 71 20 138/94 99 09/26/20 11:44 09/26/20 11:44 09/26/20 11:44 09/26/20 11:44 09/26/20 11:44 Results - Labs CBC & Chem 7: 09/26/20 04:31 09/26/20 04:31 Labs: Laboratory Last Values WBC 7.7 K/mm3 (4.5-11.0) 09/26/20 04:31 RBC 3.17 M/mm3 (3.65-5.03) L 09/26/20 04:31 Hgb 9.2 gm/dl (10.1-14.3) L 09/26/20 04:31 Hct 27.5 % (30.3-42.9) L 09/26/20 04:31 MCV 87 fl (79-97) 09/26/20 04:31 MCH 29 pg (28-32) 09/26/20 04:31 MCHC 34 % (30-34) 09/26/20 04:31 RDW 14.9 % (13.2-15.2) 09/26/20 04:31 Plt Count 422 K/mm3 (140-440) 09/26/20 04:31 Lymph % (Auto) 20.5 % (13.4-35.0) 09/26/20 04:31 [place] % (Auto) 9.0 % (0.0-7.3) H 09/26/20 04:31 Eos % (Auto) 0.9 % (0.0-4.3) 09/26/20 04:31 Baso % (Auto) 0.8 % (0.0-1.8) 09/26/20 04:31 Lymph # (Auto) 1.6 K/mm3 (1.2-5.4) 09/26/20 04:31 [place] # (Auto) 0.7 K/mm3 (0.0-0.8) 09/26/20 04:31 Eos # (Auto) 0.1 K/mm3 (0.0-0.4) 09/26/20 04:31 Baso # (Auto) 0.1 K/mm3 (0.0-0.1) 09/26/20 04:31 Seg Neutrophils % 68.8 % (40.0-70.0) 09/26/20 04:31 Seg Neutrophils # 5.3 K/mm3 (1.8-7.7) 09/26/20 04:31 Sodium 137 mmol/L (137-145) 09/26/20 04:31 Potassium 3.6 mmol/L (3.6-5.0) 09/26/20 04:31 Chloride 100.3 mmol/L (98-107) 09/26/20 04:31 Carbon Dioxide 24 mmol/L (22-30) 09/26/20 04:31 Anion Gap 16 mmol/L 09/26/20 04:31 BUN 11 mg/dL (7-17) 09/26/20 04:31 Creatinine 0.6 mg/dL (0.6-1.2) 09/26/20 04:31 Estimated GFR > 60 ml/min 09/26/20 04:31 BUN/Creatinine Ratio 18 % 09/26/20 04:31 Glucose 69 mg/dL (65-100) 09/26/20 04:31 POC Glucose 96 mg/dL (70-105) 09/26/20 11:45 Hemoglobin A1c 5.4 % (4-6) 09/24/20 07:12 Calcium 8.4 mg/dL (8.4-10.2) 09/26/20 04:31 Magnesium 2.80 mg/dL (1.7-2.3) H 09/23/20 16:55 Total Bilirubin 0.30 mg/dL (0.1-1.2) 09/24/20 07:12 AST 23 units/L (5-40) 09/24/20 07:12 ALT 20 units/L (7-56) 09/24/20 07:12 Alkaline Phosphatase 108 units/L (35-129) 09/24/20 07:12 Total Creatine Kinase 115 units/L (30-135) 09/23/20 16:55 Total Protein 5.7 g/dL (6.3-8.2) L D 09/24/20 07:12 Albumin 3.7 g/dL (3.9-5) L 09/24/20 07:12 Albumin/Globulin Ratio 1.9 % 09/24/20 07:12 Lipase 35 units/L (13-60) 09/23/20 14:21 HCG, Qual Negative (Negative) 09/23/20 14:21 Urine Color Yellow (Yellow) 09/23/20 Unknown Urine Turbidity Clear (Clear) 09/23/20 Unknown Urine pH 5.0 (5.0-7.0) 09/23/20 Unknown Ur Specific [place] 1.050 (1.003-1.030) H 09/23/20 Unknown Urine Protein <15 mg/dl mg/dL (Negative) 09/23/20 Unknown Urine Glucose (UA) Neg mg/dL (Negative) 09/23/20 Unknown Urine Ketones Neg mg/dL (Negative) 09/23/20 Unknown Urine Blood Sm (Negative) 09/23/20 Unknown Urine Nitrite Neg (Negative) 09/23/20 Unknown Urine Bilirubin Neg (Negative) 09/23/20 Unknown Urine Urobilinogen < 2.0 mg/dL (<2.0) 09/23/20 Unknown Ur Leukocyte Esterase Neg (Negative) 09/23/20 Unknown Urine WBC (Auto) 2.0 /HPF (0.0-6.0) 09/23/20 Unknown Urine RBC (Auto) 7.0 /HPF (0.0-6.0) 09/23/20 Unknown U Epithel Cells (Auto) 16.0 /HPF (0-13.0) H 09/23/20 Unknown Urine Mucus Few /HPF 09/23/20 Unknown Blood Type O POSITIVE 09/23/20 16:55 Antibody Screen Negative 09/23/20 16:55 Microbiology: Microbiology 09/23/20 Unknown Abdomen Surgical Culture - Final 09/23/20 Unknown Abdomen Anaerobic Culture - Preliminary [place]/IV: Voiding Method Toilet Active Medications - Current Medications Current Medications: Generic Name Dose Route Start Last Admin Trade Name Freq PRN Reason Stop Dose Admin Acetaminophen 650 mg 09/23/20 18:28 Acetaminophen 325 Mg Tab PO Q4H PRN Pain MILD(1-3)/Fever >100.5/SCHWARTZ Hydromorphone HCl 1 mg 09/23/20 17:39 09/26/20 11:08 Hydromorphone 1 Mg/1 Ml Inj IV 1 mg Q2H PRN Administration Pain , Severe (7-10) Hydrophilic Ointment 1 applic 09/24/20 06:46 09/24/20 06:55 Lip Therapy Vaseline TP 1 applic DIRECT PRN Administration Dry Lips Levofloxacin/Dextrose 500 mg in 100 mls @ 100 mls/hr 09/24/20 17:00 09/25/20 21:26 Levaquin 500mg/100ml IV Infused Q24H JULIA Infusion Protocol Dextrose/Sodium Chloride 1,000 mls @ 42 mls/hr 09/26/20 08:00 09/26/20 08:28 D5ns IV 42 mls/hr DIRECT JULIA Administration Metoclopramide HCl 10 mg 09/23/20 18:28 09/24/20 00:38 Metoclopramide 10 Mg/2 Ml Inj IV 10 mg Q6H PRN Administration Nausea And Vomiting Ondansetron HCl 4 mg 09/23/20 18:28 09/26/20 00:16 Ondansetron 4 Mg/2 Ml Inj IV 4 mg Q2H PRN Administration Nausea And Vomiting Pantoprazole Sodium 40 mg 09/24/20 05:00 09/26/20 05:54 Pantoprazole 40 Mg Inj IV 40 mg BID@0500,1700 JULIA Administration Sodium Chloride 10 ml 09/23/20 22:00 09/26/20 10:59 Sodium Chloride 0.9% 10 Ml Flush Syringe IV Not Given BID JULIA Sodium Chloride 10 ml 09/23/20 18:28 Sodium Chloride 0.9% 10 Ml Flush Syringe IV PRN PRN LINE FLUSH Sodium Hypochlorite 1 applic 09/25/20 13:00 09/25/20 13:36 Sodium Hypochlorite, Dakin's Full Strength (0.5%) 473 Ml Topical Soln TP 1 applicatio Q12H PRN Administration Wound Care
--- NOTE | 2020-09-26 20:35 | Progress Note ---
Assessment and Plan - Patient Problems (1) Perforated abdominal viscus Current Visit: Yes Status: Acute Plan to address problem: 1) Continue NG, ambulation, and wound care 2) Pt instructed to minimize asking for narcotics 3) Awaiting resolution of ileus Subjective Date of service: 09/26/20 Patient Reports: Positive: no new complaints, feels better, pain is less, no flatus, no bowel movement Objective Vital Signs - 12hr 09/26/20 09/26/20 09/26/20 11:44 15:13 19:07 Temperature 98.4 F 98.9 F 98.8 F Pulse Rate 71 89 85 Respiratory 20 20 18 Rate Blood Pressure 138/94 127/86 147/101 O2 Sat by Pulse 99 96 97 Oximetry - Abdomen soft, bowel sounds hypoactive (Minimal, appropriate TTP.) - Labs 09/26/20 04:31 09/26/20 04:31 Diabetes panel 09/26/20 Range/Units 04:31 Sodium 137 (137-145) mmol/L Potassium 3.6 (3.6-5.0) mmol/L Chloride 100.3 (98-107) mmol/L Carbon Dioxide 24 (22-30) mmol/L BUN 11 (7-17) mg/dL Creatinine 0.6 (0.6-1.2) mg/dL Glucose 69 (65-100) mg/dL Calcium 8.4 (8.4-10.2) mg/dL Calcium panel 09/26/20 Range/Units 04:31 Calcium 8.4 (8.4-10.2) mg/dL Pituitary panel 09/26/20 Range/Units 04:31 Sodium 137 (137-145) mmol/L Potassium 3.6 (3.6-5.0) mmol/L Chloride 100.3 (98-107) mmol/L Carbon Dioxide 24 (22-30) mmol/L BUN 11 (7-17) mg/dL Creatinine 0.6 (0.6-1.2) mg/dL Glucose 69 (65-100) mg/dL Calcium 8.4 (8.4-10.2) mg/dL Adrenal panel 09/26/20 Range/Units 04:31 Sodium 137 (137-145) mmol/L Potassium 3.6 (3.6-5.0) mmol/L Chloride 100.3 (98-107) mmol/L Carbon Dioxide 24 (22-30) mmol/L BUN 11 (7-17) mg/dL Creatinine 0.6 (0.6-1.2) mg/dL Glucose 69 (65-100) mg/dL Calcium 8.4 (8.4-10.2) mg/dL
[2020-09-27] MEDS: PANTOPRAZOLE 40 MG INJ IV SCH ×2 (04:10→16:51)
--- NOTE | 2020-09-27 08:56 | Progress Note ---
Assessment and Plan Assessment and plan: This is a 29-year-old female admitted with a perforated duodenal ulcer --Perforated duodenal ulcer 09/23 CT abdomen/pelvis with contrast shows peptic ulcer disease at the gastroduodenal junction with perforation, and large persistently reactive lymph nodes in the upper abdomen 09/23 s/p oversew of perforated duodenal ulcer and omentoplasty Follow-up cultures of surgical intraperitoneal fluid NGT removed Clear liquids advance as tolerated --Peritonitis Due to perforated duodenal ulcer Continue IV antibiotics, IV fluids and supportive care --Hypoglycemia; due to n.p.o. status Continue D5 normal saline Patient is on clear liquids Avoid hypoglycemia, D50 as needed --Leukocytosis (resolved) Due to peritonitis, resolved Continue antibiotics and supportive care --DVT prophylaxis; Lovenox subcu if okay with surgery We will closely monitor the patient and adjust management as needed Plan of care reviewed with the patient and her nurse 09/27/2020; NG tube discontinued, patient started on clear liquids Advance as tolerated, ambulatory History Interval history: I have seen and examined the patient at the bedside this morning Patient's chart and medications reviewed Patient had flatus, NG tube removed Surgery started on clear liquids Patient is ambulating No new complaint Hospitalist Physical - Constitutional Vitals: Temp Pulse Resp BP Pulse Ox 98.7 F 64 18 142/78 97 09/27/20 07:23 09/27/20 07:23 09/27/20 07:23 09/27/20 07:23 09/27/20 07:23 General appearance: Present: no acute distress, well-nourished - EENT Eyes: Present: PERRL, EOM intact - Neck Neck: Present: supple, normal ROM - Respiratory Respiratory effort: normal Respiratory: bilateral: diminished, negative: rales, rhonchi, wheezing - Cardiovascular Rhythm: regular - Extremities Extremities: no ischemia, No edema - Abdominal General gastrointestinal: soft, non-tender, non-distended, normal bowel sounds - Integumentary Integumentary: Present: clear, warm - Psychiatric Psychiatric: appropriate mood/affect, cooperative - Neurologic Neurologic: moves all extremities HEART Score - HEART Score Age: < 45 Risk factors: No known risk factors - Critical Actions Critical Actions: 0-3 pts:0.9-1.7%risk of adverse cardiac event.Candidate for discharge Results - Labs CBC & Chem 7: 09/27/20 10:11 09/27/20 10:11 Labs: Laboratory Last Values WBC 7.7 K/mm3 (4.5-11.0) 09/26/20 04:31 RBC 3.17 M/mm3 (3.65-5.03) L 09/26/20 04:31 Hgb 9.2 gm/dl (10.1-14.3) L 09/26/20 04:31 Hct 27.5 % (30.3-42.9) L 09/26/20 04:31 MCV 87 fl (79-97) 09/26/20 04:31 MCH 29 pg (28-32) 09/26/20 04:31 MCHC 34 % (30-34) 09/26/20 04:31 RDW 14.9 % (13.2-15.2) 09/26/20 04:31 Plt Count 422 K/mm3 (140-440) 09/26/20 04:31 Lymph % (Auto) 20.5 % (13.4-35.0) 09/26/20 04:31 [place] % (Auto) 9.0 % (0.0-7.3) H 09/26/20 04:31 Eos % (Auto) 0.9 % (0.0-4.3) 09/26/20 04:31 Baso % (Auto) 0.8 % (0.0-1.8) 09/26/20 04:31 Lymph # (Auto) 1.6 K/mm3 (1.2-5.4) 09/26/20 04:31 [place] # (Auto) 0.7 K/mm3 (0.0-0.8) 09/26/20 04:31 Eos # (Auto) 0.1 K/mm3 (0.0-0.4) 09/26/20 04:31 Baso # (Auto) 0.1 K/mm3 (0.0-0.1) 09/26/20 04:31 Seg Neutrophils % 68.8 % (40.0-70.0) 09/26/20 04:31 Seg Neutrophils # 5.3 K/mm3 (1.8-7.7) 09/26/20 04:31 Sodium 137 mmol/L (137-145) 09/26/20 04:31 Potassium 3.6 mmol/L (3.6-5.0) 09/26/20 04:31 Chloride 100.3 mmol/L (98-107) 09/26/20 04:31 Carbon Dioxide 24 mmol/L (22-30) 09/26/20 04:31 Anion Gap 16 mmol/L 09/26/20 04:31 BUN 11 mg/dL (7-17) 09/26/20 04:31 Creatinine 0.6 mg/dL (0.6-1.2) 09/26/20 04:31 Estimated GFR > 60 ml/min 09/26/20 04:31 BUN/Creatinine Ratio 18 % 09/26/20 04:31 Glucose 69 mg/dL (65-100) 09/26/20 04:31 POC Glucose 98 mg/dL (70-105) 09/26/20 23:09 Hemoglobin A1c 5.4 % (4-6) 09/24/20 07:12 Calcium 8.4 mg/dL (8.4-10.2) 09/26/20 04:31 Magnesium 2.80 mg/dL (1.7-2.3) H 09/23/20 16:55 Total Bilirubin 0.30 mg/dL (0.1-1.2) 09/24/20 07:12 AST 23 units/L (5-40) 09/24/20 07:12 ALT 20 units/L (7-56) 09/24/20 07:12 Alkaline Phosphatase 108 units/L (35-129) 09/24/20 07:12 Total Creatine Kinase 115 units/L (30-135) 09/23/20 16:55 Total Protein 5.7 g/dL (6.3-8.2) L D 09/24/20 07:12 Albumin 3.7 g/dL (3.9-5) L 09/24/20 07:12 Albumin/Globulin Ratio 1.9 % 09/24/20 07:12 Lipase 35 units/L (13-60) 09/23/20 14:21 HCG, Qual Negative (Negative) 09/23/20 14:21 Urine Color Yellow (Yellow) 09/23/20 Unknown Urine Turbidity Clear (Clear) 09/23/20 Unknown Urine pH 5.0 (5.0-7.0) 09/23/20 Unknown Ur Specific [place] 1.050 (1.003-1.030) H 09/23/20 Unknown Urine Protein <15 mg/dl mg/dL (Negative) 09/23/20 Unknown Urine Glucose (UA) Neg mg/dL (Negative) 09/23/20 Unknown Urine Ketones Neg mg/dL (Negative) 09/23/20 Unknown Urine Blood Sm (Negative) 09/23/20 Unknown Urine Nitrite Neg (Negative) 09/23/20 Unknown Urine Bilirubin Neg (Negative) 09/23/20 Unknown Urine Urobilinogen < 2.0 mg/dL (<2.0) 09/23/20 Unknown Ur Leukocyte Esterase Neg (Negative) 09/23/20 Unknown Urine WBC (Auto) 2.0 /HPF (0.0-6.0) 09/23/20 Unknown Urine RBC (Auto) 7.0 /HPF (0.0-6.0) 09/23/20 Unknown U Epithel Cells (Auto) 16.0 /HPF (0-13.0) H 09/23/20 Unknown Urine Mucus Few /HPF 09/23/20 Unknown Blood Type O POSITIVE 09/23/20 16:55 Antibody Screen Negative 09/23/20 16:55 Microbiology: Microbiology 09/23/20 Unknown Abdomen Surgical Culture - Final Valdez/IV: Voiding Method Toilet Active Medications - Current Medications Current Medications: Generic Name Dose Route Start Last Admin Trade Name Freq PRN Reason Stop Dose Admin Acetaminophen 650 mg 09/23/20 18:28 Acetaminophen 325 Mg Tab PO Q4H PRN Pain MILD(1-3)/Fever >100.5/SCHWARTZ Hydromorphone HCl 1 mg 09/23/20 17:39 09/26/20 21:03 Hydromorphone 1 Mg/1 Ml Inj IV 1 mg Q2H PRN Administration Pain , Severe (7-10) Hydrophilic Ointment 1 applic 09/24/20 06:46 09/24/20 06:55 Lip Therapy Vaseline TP 1 applic DIRECT PRN Administration Dry Lips Levofloxacin/Dextrose 500 mg in 100 mls @ 100 mls/hr 09/24/20 17:00 09/26/20 16:16 Levaquin 500mg/100ml IV 100 mls/hr Q24H JULIA Administration Protocol Dextrose/Sodium Chloride 1,000 mls @ 42 mls/hr 09/26/20 08:00 09/26/20 23:13 D5ns IV 42 mls/hr DIRECT JULIA Administration Metoclopramide HCl 10 mg 09/23/20 18:28 09/24/20 00:38 Metoclopramide 10 Mg/2 Ml Inj IV 10 mg Q6H PRN Administration Nausea And Vomiting Ondansetron HCl 4 mg 09/23/20 18:28 09/26/20 00:16 Ondansetron 4 Mg/2 Ml Inj IV 4 mg Q2H PRN Administration Nausea And Vomiting Pantoprazole Sodium 40 mg 09/24/20 05:00 09/27/20 04:10 Pantoprazole 40 Mg Inj IV 40 mg BID@0500,1700 JULIA Administration Sodium Chloride 10 ml 09/23/20 22:00 09/26/20 21:04 Sodium Chloride 0.9% 10 Ml Flush Syringe IV 10 ml BID JULIA Administration Sodium Chloride 10 ml 09/23/20 18:28 Sodium Chloride 0.9% 10 Ml Flush Syringe IV PRN PRN LINE FLUSH Sodium Hypochlorite 1 applic 09/25/20 13:00 09/25/20 13:36 Sodium Hypochlorite, Dakin's Full Strength (0.5%) 473 Ml Topical Soln TP 1 applicatio Q12H PRN Administration Wound Care
--- NOTE | 2020-09-27 10:49 | Progress Note ---
Assessment and Plan - Patient Problems (1) Perforated abdominal viscus Current Visit: Yes Status: Acute (2) Paralytic ileus Current Visit: Yes Status: Acute Plan to address problem: 1) Check AXR 2) Continue NG 3) Ambulate 4) Minimize narcotics Subjective Date of service: 09/27/20 Patient Reports: Positive: no new complaints, feels better, no flatus, no bowel movement Objective Vital Signs - 12hr 09/26/20 09/27/20 09/27/20 23:11 05:33 07:23 Temperature 98.5 F 98.5 F 98.7 F Pulse Rate 73 81 64 Respiratory 18 18 18 Rate Blood Pressure 132/75 121/83 142/78 O2 Sat by Pulse 96 96 97 Oximetry - Abdomen soft, bowel sounds hypoactive (Minimal TTP without rebound or guarding.) - Labs 09/26/20 04:31 09/26/20 04:31
--- NOTE | 2020-09-27 11:04 | XRay Report ---
ABDOMEN 2 VIEW(S) INDICATION / CLINICAL INFORMATION: ileus. COMPARISON: CT abdomen/pelvis from 09/23/2020 FINDINGS: TUBES / LINES: NG tube tip in the mid to distal stomach. BOWEL GAS PATTERN: No significant abnormality. FREE AIR / EXTRALUMINAL GAS: None seen. ADDITIONAL FINDINGS: No significant additional findings. IMPRESSION: 1. NGT in the mid to distal stomach. Otherwise unremarkable exam. Signer Name: Robinson Peng MD Signed: 09/27/2020 10:59 AM Workstation Name: [id number]
[2020-09-27] MEDS: HYDROmorphone 1 MG/1 ML INJ IV PRN ×3 (11:11→22:23)
[2020-09-27] MEDS: SODIUM HYPOCHLORITE, DAKIN'S FULL STRENGTH (0.5%) 473 ML TOPICAL SOLN TP PRN (11:12)
[2020-09-27 11:19] LABS: Alanine Aminotransferase 20 units/L (7-56); Albumin 3.4 g/dL (3.9-5); Blood Urea Nitrogen 6 mg/dL (7-17); Calcium 9.3 mg/dL (8.4-10.2); Hemolysis Index 6
[2020-09-27 11:25] LABS: BUN/Creatinine Ratio 10
[2020-09-27] MEDS ORDERED: PHENOL 1.4% 177 ML BOTTLE MM PRN (12:00)
[2020-09-27 13:26] LABS: Basophils # (Auto) 0.1 K/mm3 (0.0-0.1); Basophils % (Auto) 1.3 % (0.0-1.8); Eosinophils # (Auto) 0.1 K/mm3 (0.0-0.4); Eosinophils % (Auto) 1.1 % (0.0-4.3); Hematocrit 34.5 % (30.3-42.9); Hemoglobin 11.3 gm/dl (10.1-14.3); Lymphocytes # (Auto) 1.5 K/mm3 (1.2-5.4); Lymphocytes % (Auto) 22.6 % (13.4-35.0); Mean Corpuscular HGB Conc 33 % (30-34); Mean Corpuscular Volume 88 fl (79-97); Monocytes # (Auto) 0.8 K/mm3 (0.0-0.8); Monocytes % (Auto) 11.4 % (0.0-7.3); Platelet Count 565 K/mm3 (140-440); Red Blood Count 3.92 M/mm3 (3.65-5.03); Red Cell Distribution Width 15.5 % (13.2-15.2)
[2020-09-27] MEDS: ENOXAPARIN 40 MG/0.4 ML INJ SUB-Q SCH (22:22)
[2020-09-28] MEDS: PANTOPRAZOLE 40 MG INJ IV SCH ×2 (04:57→17:26)
[2020-09-28] MEDS: D5W/0.9% NACL 1,000 ML IV SCH (05:01)
[2020-09-28] MEDS ORDERED: LIDOCAINE MPF (2%) 20 MG/1 ML VIAL 5 ML ONE (09:00)
--- NOTE | 2020-09-28 09:12 | Anesthesia Day of Surgery ---
Anesthesia Day of Surgery - Day of Surgery Patient Examined: Yes Patient H&P Reviewed: Yes Patient is NPO: Yes
[2020-09-28] MEDS ORDERED: MIDAZOLAM 2 MG/2 ML INJ IV NR (10:00)
[2020-09-28] MEDS ORDERED: ONDANSETRON 4 MG/2 ML INJ IV PRN (10:00)
[2020-09-28] MEDS ORDERED: LACTATED RINGERS 1,000 ML IV SCH (10:00)
[2020-09-28] MEDS ORDERED: fentaNYL 100 MCG/2 ML INJ ONE (10:26)
[2020-09-28] MEDS ORDERED: propofoL 200 MG/20 ML VIAL IV ONE ×4 (10:27→11:02)
[2020-09-28] MEDS ORDERED: KETAMINE/STERILE WATER 50 MG/ML SYRINGE ONE (10:29)
[2020-09-28] MEDS ORDERED: LIDOCAINE 1%/EPINEPHRINE 1:100,000 VIAL (20 ML) INFILTRATI ONE (11:12)
[2020-09-28] MEDS: HYDROmorphone 1 MG/1 ML INJ IV PRN ×3 (12:00→21:13)
--- NOTE | 2020-09-28 12:18 | Procedure Note ---
Date of procedure: 09/28/20 Pre-op diagnosis: Open abdominal wound, 17 cm Post-op diagnosis: same Procedure: Closure of open abdominal wound, 17 cm, simple Description of procedure: Pt was placed supine on the OR table. MAC anesthesia was administered. Abdomen was prepped and draped. The vertical midline wound was irrigated with warm saline and was closed with vertical mattress sutures of 4-0 Nylon. One quarter inch Iodoform wick was inserted into the wound between the vertical mattress sutures. The wound was covered with dry 4 X 4's and Medipore tape. Pt tolerated the procedure well and was taken to PACU in stable condition. Anesthesia: MAC Surgeon: SAUL LEW Estimated blood loss: minimal Pathology: none Condition: stable Disposition: PACU
--- NOTE | 2020-09-28 14:08 | Progress Note ---
Assessment and Plan Assessment and plan: This is a 29-year-old female admitted with a perforated duodenal ulcer, NG tube removed, started on clear liquids, today she went for abdominal wound closure Diet advanced to full liquids, increase ambulation as tolerated possible possible discharge in 1 to 2 days if stable, --Closure of 17 cm open abdominal wound today 09/28/2020 Patient tolerated the procedure well Continue supportive care --Perforated duodenal ulcer 09/23 CT abd/pelvis W ; peptic ulcer disease at the gastroduodenal junction with perforation, and large persistently reactive lymph nodes in the upper abdomen 09/23 s/p oversew of perforated duodenal ulcer and omentoplasty Patient had abdominal wound closure today Negative surgical cultures to date Advance her diet to full liquids Closure of 17 cm open abdominal wound today 09/28/2020 --Peritonitis Due to perforated duodenal ulcer Continue IV antibiotics, IV fluids and supportive care --Hypoglycemia; due to n.p.o. status Blood sugars improved --Leukocytosis (resolved) Due to peritonitis, resolved Continue antibiotics and supportive care --DVT prophylaxis; Lovenox subcu if okay with surgery We will closely monitor the patient and adjust management as needed Plan of care reviewed with the patient and her nurse 09/27/2020; NG tube discontinued, patient started on clear liquids Advance as tolerated, ambulatory 09/28/2020; abdominal wound closure today Diet advanced to full liquids, increase ambulation Possible discharge home in 1 to 2 days if stable History Interval history: I have seen and examined the patient at the bedside Patient's chart and medications reviewed Patient had 17 cm of open abdominal wound[postprocedure] Patient underwent closure of open abdominal wound per surgery Vital signs noted Hospitalist Physical - Constitutional Vitals: Temp Pulse Resp BP Pulse Ox 98.6 F 76 18 131/99 95 09/28/20 12:45 09/28/20 12:45 09/28/20 12:45 09/28/20 12:45 09/28/20 12:45 General appearance: Present: no acute distress, well-nourished - EENT Eyes: Present: PERRL, EOM intact - Neck Neck: Present: supple, normal ROM - Respiratory Respiratory effort: normal Respiratory: bilateral: diminished, negative: rales, rhonchi, wheezing - Cardiovascular Rhythm: regular Heart Sounds: Present: S1 & S2 - Extremities Extremities: no ischemia, No edema - Abdominal General gastrointestinal: soft, non-tender, non-distended, normal bowel sounds - Integumentary Integumentary: Present: clear, warm - Psychiatric Psychiatric: appropriate mood/affect, cooperative - Neurologic Neurologic: CNII-XII intact, moves all extremities HEART Score - HEART Score Age: < 45 Risk factors: No known risk factors - Critical Actions Critical Actions: 0-3 pts:0.9-1.7%risk of adverse cardiac event.Candidate for discharge Results - Labs CBC & Chem 7: 09/27/20 10:11 09/27/20 10:11 Labs: Laboratory Last Values WBC 6.6 K/mm3 (4.5-11.0) 09/27/20 10:11 RBC 3.92 M/mm3 (3.65-5.03) 09/27/20 10:11 Hgb 11.3 gm/dl (10.1-14.3) 09/27/20 10:11 Hct 34.5 % (30.3-42.9) D 09/27/20 10:11 MCV 88 fl (79-97) 09/27/20 10:11 MCH 29 pg (28-32) 09/27/20 10:11 MCHC 33 % (30-34) 09/27/20 10:11 RDW 15.5 % (13.2-15.2) H 09/27/20 10:11 Plt Count 565 K/mm3 (140-440) H 09/27/20 10:11 Lymph % (Auto) 22.6 % (13.4-35.0) 09/27/20 10:11 [place] % (Auto) 11.4 % (0.0-7.3) H 09/27/20 10:11 Eos % (Auto) 1.1 % (0.0-4.3) 09/27/20 10:11 Baso % (Auto) 1.3 % (0.0-1.8) 09/27/20 10:11 Lymph # (Auto) 1.5 K/mm3 (1.2-5.4) 09/27/20 10:11 [place] # (Auto) 0.8 K/mm3 (0.0-0.8) 09/27/20 10:11 Eos # (Auto) 0.1 K/mm3 (0.0-0.4) 09/27/20 10:11 Baso # (Auto) 0.1 K/mm3 (0.0-0.1) 09/27/20 10:11 Seg Neutrophils % 63.6 % (40.0-70.0) 09/27/20 10:11 Seg Neutrophils # 4.2 K/mm3 (1.8-7.7) 09/27/20 10:11 Sodium 138 mmol/L (137-145) 09/27/20 10:11 Potassium 3.7 mmol/L (3.6-5.0) 09/27/20 10:11 Chloride 98.3 mmol/L (98-107) 09/27/20 10:11 Carbon Dioxide 26 mmol/L (22-30) 09/27/20 10:11 Anion Gap 17 mmol/L 09/27/20 10:11 BUN 6 mg/dL (7-17) L 09/27/20 10:11 Creatinine 0.6 mg/dL (0.6-1.2) 09/27/20 10:11 Estimated GFR > 60 ml/min 09/27/20 10:11 BUN/Creatinine Ratio 10 % 09/27/20 10:11 Glucose 87 mg/dL (65-100) 09/27/20 10:11 POC Glucose 106 mg/dL (70-105) H 09/28/20 07:30 Hemoglobin A1c 5.4 % (4-6) 09/24/20 07:12 Calcium 9.3 mg/dL (8.4-10.2) 09/27/20 10:11 Phosphorus 3.00 mg/dL (2.5-4.5) 09/27/20 10:11 Magnesium 2.10 mg/dL (1.7-2.3) 09/27/20 10:11 Total Bilirubin 0.40 mg/dL (0.1-1.2) 09/27/20 10:11 AST 22 units/L (5-40) 09/27/20 10:11 ALT 20 units/L (7-56) 09/27/20 10:11 Alkaline Phosphatase 97 units/L (35-129) 09/27/20 10:11 Total Creatine Kinase 115 units/L (30-135) 09/23/20 16:55 Total Protein 7.3 g/dL (6.3-8.2) D 09/27/20 10:11 Albumin 3.4 g/dL (3.9-5) L 09/27/20 10:11 Albumin/Globulin Ratio 0.9 % 09/27/20 10:11 Lipase 35 units/L (13-60) 09/23/20 14:21 HCG, Qual Negative (Negative) 09/23/20 14:21 Urine Color Yellow (Yellow) 09/23/20 Unknown Urine Turbidity Clear (Clear) 09/23/20 Unknown Urine pH 5.0 (5.0-7.0) 09/23/20 Unknown Ur Specific [place] 1.050 (1.003-1.030) H 09/23/20 Unknown Urine Protein <15 mg/dl mg/dL (Negative) 09/23/20 Unknown Urine Glucose (UA) Neg mg/dL (Negative) 09/23/20 Unknown Urine Ketones Neg mg/dL (Negative) 09/23/20 Unknown Urine Blood Sm (Negative) 09/23/20 Unknown Urine Nitrite Neg (Negative) 09/23/20 Unknown Urine Bilirubin Neg (Negative) 09/23/20 Unknown Urine Urobilinogen < 2.0 mg/dL (<2.0) 09/23/20 Unknown Ur Leukocyte Esterase Neg (Negative) 09/23/20 Unknown Urine WBC (Auto) 2.0 /HPF (0.0-6.0) 09/23/20 Unknown Urine RBC (Auto) 7.0 /HPF (0.0-6.0) 09/23/20 Unknown U Epithel Cells (Auto) 16.0 /HPF (0-13.0) H 09/23/20 Unknown Urine Mucus Few /HPF 09/23/20 Unknown Blood Type O POSITIVE 09/23/20 16:55 Antibody Screen Negative 09/23/20 16:55 Valdez/IV: Voiding Method Toilet Active Medications - Current Medications Current Medications: Generic Name Dose Route Start Last Admin Trade Name Freq PRN Reason Stop Dose Admin Acetaminophen 650 mg 09/23/20 18:28 Acetaminophen 325 Mg Tab PO Q4H PRN Pain MILD(1-3)/Fever >100.5/SCHWARTZ Enoxaparin Sodium 40 mg 09/27/20 22:00 09/27/20 22:22 Enoxaparin 40 Mg/0.4 Ml Inj SUB-Q 40 mg QDAY@2200 JULIA Administration Protocol Hydromorphone HCl 1 mg 09/23/20 17:39 09/27/20 22:23 Hydromorphone 1 Mg/1 Ml Inj IV 1 mg Q2H PRN Administration Pain , Severe (7-10) Hydromorphone HCl 0.5 mg 09/28/20 10:00 09/28/20 12:10 Hydromorphone 1 Mg/1 Ml Inj IV 09/28/20 17:00 0.5 mg Q10MIN PRN Administration Pain , Severe (7-10) Hydrophilic Ointment 1 applic 09/24/20 06:46 09/24/20 06:55 Lip Therapy Vaseline TP 1 applic DIRECT PRN Administration Dry Lips Levofloxacin/Dextrose 500 mg in 100 mls @ 100 mls/hr 09/24/20 17:00 09/27/20 16:50 Levaquin 500mg/100ml IV 100 mls/hr Q24H JULIA Administration Protocol Dextrose/Sodium Chloride 1,000 mls @ 42 mls/hr 09/26/20 08:00 09/28/20 05:01 D5ns IV 42 mls/hr DIRECT JULIA Administration Lactated Ringer's 1,000 mls @ 100 mls/hr 09/28/20 10:00 09/28/20 09:55 Lactated Ringers IV 100 mls/hr DIRECT JULIA Administration Metoclopramide HCl 10 mg 09/23/20 18:28 09/24/20 00:38 Metoclopramide 10 Mg/2 Ml Inj IV 10 mg Q6H PRN Administration Nausea And Vomiting Midazolam HCl 2 mg 09/28/20 10:00 09/28/20 10:19 Midazolam 2 Mg/2 Ml Inj IV 09/28/20 23:59 2 mg PREOP NR Administration Ondansetron HCl 4 mg 09/23/20 18:28 09/26/20 00:16 Ondansetron 4 Mg/2 Ml Inj IV 4 mg Q2H PRN Administration Nausea And Vomiting Ondansetron HCl 4 mg 09/28/20 10:00 Ondansetron 4 Mg/2 Ml Inj IV 09/28/20 17:00 ONCE PRN Nausea And Vomiting Pantoprazole Sodium 40 mg 09/24/20 05:00 09/28/20 04:57 Pantoprazole 40 Mg Inj IV 40 mg BID@0500,1700 JULIA Administration Phenol 1 spray 09/27/20 12:00 Phenol 1.4% 177 Ml Bottle MM PRN PRN Sore Throat Sodium Chloride 10 ml 09/23/20 22:00 09/27/20 22:24 Sodium Chloride 0.9% 10 Ml Flush Syringe IV 10 ml BID JULIA Administration Sodium Chloride 10 ml 09/23/20 18:28 Sodium Chloride 0.9% 10 Ml Flush Syringe IV PRN PRN LINE FLUSH Sodium Hypochlorite 1 applic 09/25/20 13:00 09/27/20 11:12 Sodium Hypochlorite, Dakin's Full Strength (0.5%) 473 Ml Topical Soln TP 1 applicatio Q12H PRN Administration Wound Care
--- NOTE | 2020-09-28 14:13 | Post Anesthesia Evaluation ---
- Post Anesthesia Evaluation Patient Participated: Yes Airway Patent: Yes Stable Respiratory Function: Yes Nausea/Vomiting: No Temp > 96.8F: Yes Pain Manageable: Yes Adequeate Hydration: Yes Anesthesia Complications: No
[2020-09-28] MEDS: ENOXAPARIN 40 MG/0.4 ML INJ SUB-Q SCH (21:14)
[2020-09-29] MEDS: PANTOPRAZOLE 40 MG INJ IV SCH (06:11)
--- NOTE | 2020-09-29 09:54 | Progress Note ---
Assessment and Plan - Patient Problems (1) Perforated abdominal viscus Current Visit: Yes Status: Acute Plan to address problem: 1) Pt can be discharged from my perspective. 2) F/u in office in 2 weeks 3) No lifting or straining 4) Regular diet 5) May shower in 72 hours 6) Rx - Narcotic of choice + PPI X 2 months (2) Paralytic ileus Current Visit: Yes Status: Acute Subjective Date of service: 09/29/20 Patient Reports: Positive: no new complaints, feels better, pain is less, tolerating liquids well, flatus Objective Vital Signs - 12hr 09/28/20 09/29/20 09/29/20 23:33 04:54 07:54 Temperature 98.4 F 98.1 F 98.1 F Pulse Rate 70 75 71 Respiratory 18 18 48 H Rate Blood Pressure 127/77 99/43 114/76 O2 Sat by Pulse 100 100 99 Oximetry - Abdomen soft, bowel sounds normal (Minimally TTP without rebound or guarding.) - Labs 09/27/20 10:11 09/27/20 10:11
[2020-09-29 12:30] VITALS: BP 114/70
--- NOTE | 2020-09-29 14:51 | Discharge Summary ---
Providers - Providers Date of Admission: 09/23/20 17:00 Date of discharge: 09/29/20 Attending physician: RAYA BOSWELL 09/23/20 16:57 Consult to Physician [CONS] Urgent Comment: Consulting Provider: SAUL WALKER Physician Instructions: Reason For Exam: perf viscus Primary care physician: SET DECORATOR Hospitalization Reason for admission: Abdominal pain of 2 weeks duration/perforated duodenal ulcer Condition: Stable Pertinent studies: abdominal x-ray; NGT in the mid to distal stomach abdominal x-ray CT abdomen and pelvis; peptic ulcer disease, duodenal gastroduodenal junction with perforation, enlarged presumably reactive lymph nodes in the upper abdomen Procedures: Perforated duodenal ulcer; repair with closure and omentoplasty Closure of the open abdominal wound 7 cm open abdominal wound centimeters Hospital course: 29-year-old -[place] Citizen female with no significant past medical history was admitted through emergency room with abdominal pain of 2 weeks duration, patient has been taking Goody powder for many days for her headaches and body pains. Patient was initially evaluated in the ER, CT abdomen and pelvis revealed perforated duodenal ulcer, admitted evaluated by surgeon subsequently underwent repair of perforated duodenal ulcer and omentoplasty on 09/23/2020, initially patient had an open abdominal wound ,subsequently patient underwent closure of 17 cm open abdominal wound on 09/28/2020. Patient symptoms slowly but gradually improved, diet was started with clear liquids and advanced as tolerated. Today patient is comfortable no new complaints vital signs stable physical examination prior to discharge is unremarkable Cleared by consultants for discharge and follow-up per schedule Stable at discharge Discharge diagnosis: --Perforated duodenal ulcer; 09/23 s/p oversew of perforated duodenal ulcer and omentoplasty Patient had abdominal wound closure today --s/p Closure of 17 cm open abdominal wound today 09/28/2020 --Peritonitis; on admission Resolved --Hypoglycemia; improved --Leukocytosis (resolved) Cleared by surgeon Stable at discharge Disposition: [id number] TO HOME OR SELFCARE Final Discharge Diagnosis (Prints w/discharge instructions): Perforated duodenal ulcer. Status post repair omentoplasty. Status post closure of open abdominal wound. Peritonitis resolved. Hypoglycemia resolved. Leukocytosis resolved Time spent for discharge: 35 min Core Measure Documentation - Palliative Care Palliative Care/ Comfort Measures: Not Applicable - Core Measures Any of the following diagnoses?: none Exam - Constitutional Vitals: Temp Pulse Resp BP Pulse Ox 98.7 F 89 18 114/70 98 09/29/20 11:53 09/29/20 11:53 09/29/20 11:53 09/29/20 11:53 09/29/20 11:53 General appearance: Present: no acute distress, well-nourished - EENT Eyes: Present: PERRL, EOM intact - Neck Neck: Present: supple, normal ROM - Respiratory Respiratory effort: normal Respiratory: bilateral: diminished, negative: rales, rhonchi, wheezing - Cardiovascular Rhythm: regular Heart Sounds: Present: S1 & S2 - Extremities Extremities: no ischemia, No edema - Abdominal General gastrointestinal: Present: soft, non-tender, non-distended, other (Surgical dressing in place) - Integumentary Integumentary: Present: clear, warm - Musculoskeletal Musculoskeletal: strength equal bilaterally, generalized weakness - Psychiatric Psychiatric: appropriate mood/affect, cooperative - Neurologic Neurologic: moves all extremities Plan Activity: advance as tolerated, other (Do not lift heavy weights for 6 weeks or until cleared by surgeon) Diet: regular Additional Instructions: F/u in Dr. Walker's office in 7 days. No lifting or straining. Regular diet. May shower in 72 hours. If you have worsening symptoms contact MD or go to emergency room. Advised 7 days excuse, from 09/30/2020 till 10/06/2020 check with primary care physician/surgeon for additional days of work excuse as needed Follow up with: PRIMARY CAREMD [Primary Care Provider] - 3-5 Days SAUL WALKER MD [Staff Physician] - 7 Days Prescriptions: oxyCODONE /ACETAMINOPHEN [Percocet 5/325] 1 tab PO TID PRN 7 Days #21 tablet PRN Reason: Pain , Severe (7-10) Pantoprazole [Protonix] 40 mg PO BID #60 tablet
== END 2020-09-29 18:20 | disposition home or self-care (01) | DRG 326 ==
LOC: ED 12:00 → 3B-SURG 17:00
PROVIDERS: ADMIT Internal Medicine; ATTEND Internal Medicine
PROC: 0DQ90ZZ Repair Duodenum, Open Approach (ICD-10-PCS; principal; 2020-09-23)
PROC: 0DRU07Z Replacement of Omentum with Autologous Tissue Substitute, Open Approach (ICD-10-PCS; 2020-09-23)
DX: K26.5 Chronic or unspecified duodenal ulcer with perforation (principal); K65.9 Peritonitis, unspecified; K56.0 Paralytic ileus; E87.6 Hypokalemia; E16.2 Hypoglycemia, unspecified; K66.8 Other specified disorders of peritoneum; F17.200 Nicotine dependence, unspecified, uncomplicated; D72.829 Elevated white blood cell count, unspecified; Z88.1 Allergy status to other antibiotic agents; Z82.49 Family history of ischemic heart disease and other diseases of the circulatory system; Z88.0 Allergy status to penicillin; Z79.899 Other long term (current) drug therapy; Z79.891 Long term (current) use of opiate analgesic; Z79.01 Long term (current) use of anticoagulants
CPT/HCPCS: 36415; 74019; 74177; 80048; 80053; 81001; 82550; 82962; 83036; 83690; 83735; 84100; 84703; 85025; 85027; 86850; 86900; 86901; 87075; 87116; 96361; 96365; 96375; G0378; C9113; J0330; J1100; J1170; J1200; J1650; J1956; J2250; J2270; J2405; J2704; J2765; J3010; J3480; J3490; J7030; J7042; J7120; Q9967